=== PATIENT | female | born 1965 | race Caucasian/White ===

== ENCOUNTER → 2016-11-28 | Outpatient (CLI) | payer BC ==
--- NOTE | 2016-11-29 10:04 | MM ---
Reason for exam: screening (asymptomatic). Last mammogram was performed 2 years and 8 months ago. History: Patient had first child at age 32. Benign left mammotome panel of the left breast, October 11, 2009. Took hormonal contraceptives for 20 years. Physical Findings: A clinical breast exam by your physician is recommended on an annual basis and results should be correlated with mammographic findings. MG Screening Mammo w CAD Bilateral CC and MLO view(s) were taken. Prior study comparison: March 22, 2014, bilateral MG diagnostic mammo w CAD [facility]. January 16, 2012, CAD bilateral diagnostic mammogram. The breast tissue is extremely dense which could obscure a lesion on mammography. Previous ultrasound biopsy in the left breast. No significant changes when compared with prior studies. ASSESSMENT: Benign, BI-RAD 2 RECOMMENDATION: Routine screening mammogram of both breasts in 1 year.
== END | disposition home or self-care (01) ==
LOC: RADMAMWWP 13:21
PROVIDERS: ATTEND Obstetrics & Gynecology
DX: Z12.31 Encounter for screening mammogram for malignant neoplasm of breast (principal)

== ENCOUNTER → 2018-03-30 | Outpatient (CLI) | payer BC ==
--- NOTE | 2018-03-30 08:56 | CT ---
EXAMINATION TYPE: CT iac w con DATE OF EXAM: 03/30/2018 COMPARISON: None HISTORY: Patient complains of right side ear pressure. CT DLP: 150 mGycm Automated exposure control for dose reduction was used. CONTRAST: CT scan of the IACs is performed with IV Contrast, patient injected with 100 mL of Isovue 300. FINDINGS: The external auditory canals are patent bilaterally. Few of the most inferior right mastoid air cells demonstrate opacification. Left mastoid air cells are well aerated. No fluid is seen withi n the middle ear cavities. External auditory canals are patent however there is a punctate 1 mm densi ty within the right external auditory canal that could represent cerumen. The middle ear ossicles ar e symmetric and unremarkable. There is no evidence of suspicious surrounding soft tissue density to suggest cholesteatoma. The scutum is preserved bilaterally. The cochlea and the semicircular canals are symmetric and unremarkable. Vestibular aqueduct and internal carotid canal appear unremarkable. Temporomandibular joints are maintained bilaterally. The ostiomeatal complexes are patent. Nonobstructing 3 mm right Siomara cells incidentally noted. Osse ous septi are noted in the maxillary sinuses. 4 mm right maxillary mucosal retention cyst is seen mary beth ng the medial wall of the maxillary sinus. Remaining paranasal sinuses are well aerated. On the enhan ramírez images there is no evidence of cerebellar pontine angle mass. Left vertebral artery is dominant. No dehiscence of the carotid canal. IMPRESSION: 1. Partial opacification of the right mastoid air cells that should be clinically correlate with poin t tenderness to exclude mastoiditis. 2. Punctate 1 mm density within the right external auditory canal that may represent cerumen. 3. No evidence of cholesteatoma, middle ear cavity fluid, ossicular abnormality, or cerebellopontine angle mass. No abnormal enhancement.
== END | disposition home or self-care (01) ==
LOC: RADCTMAIN 08:11
PROVIDERS: ATTEND Otolaryngology
DX: H74.8X1 Other specified disorders of right middle ear and mastoid (principal); H61.891 Other specified disorders of right external ear
CPT/HCPCS: 70481; Q9967

== ENCOUNTER → 2018-12-14 | Outpatient (CLI) | payer BC ==
--- NOTE | 2018-12-15 08:57 | MM ---
Reason for exam: screening (asymptomatic). Last mammogram was performed 2 years and 1 month ago. History: Patient is postmenopausal and had first child at age 32. Benign left mammotome panel of the left breast, October 11, 2009. Took hormonal contraceptives for 20 years. Physical Findings: A clinical breast exam by your physician is recommended on an annual basis and results should be correlated with mammographic findings. MG Screening Mammo w CAD Bilateral CC and MLO view(s) were taken. Prior study comparison: November 28, 2016, bilateral MG screening mammo w CAD. March 22, 2014, bilateral MG diagnostic mammo w CAD [facility]. The breast tissue is heterogeneously dense. This may lower the sensitivity of mammography. Finding #1: There is a 7 mm equal density (isodense), obscured oval mass in the upper outer quadrant of the right breast. Finding #2: There are typically benign calcifications in both breasts. Previous mammotome biopsy in the right. ASSESSMENT: Incomplete: need additional imaging evaluation, BI-RAD 0 RECOMMENDATION: Special view mammogram of the right breast. If lesion persists on supplemental views, image directed ultrasound is recommended. [facility] will attempt to contact patient to return for supplemental views and ultrasound if indicated.
--- NOTE | 2018-12-15 14:16 | BD ---
EXAMINATION TYPE: Axial Bone Density DATE OF EXAM: 12/14/2018 COMPARISON: NONE CLINICAL HISTORY: Postmenopausal Height: 66 Weight: 148.5 FRAX RISK QUESTIONS: Alcohol (3 or more units per day): no Family History (Parent hip fracture): no Glucocorticoids (More than 3mos): no (Ex: prednisone, prednisolone, methylprednisolone, dexamethasone, and hydrocortisone). History of Fracture in Adulthood: no Secondary Osteoporosis: 1. Type 1 Diabetes: no 2. Hyperthyroidism: no 3. Menopause before 45: no 4. Malnutrition: no 5. Chronic liver disease: no Rheumatoid Arthritis: no Current Tobacco Use: no RISK FACTORS HISTORY OF: Family History of Osteoporosis: no Active: yes Diet low in dairy products/other sources of calcium: yes Postmenopausal woman: age 53 Lost more than 2 inches in height since high school: no MEDICATIONS: none Additional History: EXAM MEASUREMENTS: Bone mineral densitometry was performed using the [employer] System. Bone mineral density as measured about the Lumbar spine is: ----- L1-L4(G/cm2): 1.034 T Score Values are as follows: ----- L2: -1.8 ----- L3: -0.6 ----- L4: -1.3 ----- L1-L4: -1.2 Bone mineral density : baseline Bone mineral density about the R hip (g/cm2): 0.886 Bone mineral density about the L hip (g/cm2): 0.926 T Score values are as follows: -----R Neck: -1.1 -----L Neck: -0.8 -----R Total: -0.9 -----L Total: -0.7 Bone mineral density : baseline IMPRESSION: Osteopenia (T Score between -2.5 and -1). There is slightly increased risk of fracture and the patient may be considered for treatment. Re-Screen 2-5 years. NOTE: T-SCORE=SD OF THE YOUNG ADULT MEAN.
== END | disposition home or self-care (01) ==
LOC: RADMAMWWP 11:53
PROVIDERS: ATTEND Family Medicine
DX: Z12.31 Encounter for screening mammogram for malignant neoplasm of breast (principal); M85.88 Other specified disorders of bone density and structure, other site; Z78.0 Asymptomatic menopausal state
CPT/HCPCS: 77067; 77080

== ENCOUNTER → 2018-12-16 | Outpatient (CLI) | payer BC ==
--- NOTE | 2018-12-17 10:06 | MM ---
Reason for exam: additional evaluation requested from abnormal screening. Last mammogram was performed less than 1 month ago. History: Patient is postmenopausal and had first child at age 32. Benign left mammotome panel of the left breast, October 11, 2009. Took hormonal contraceptives for 20 years. Physical Findings: Nurse Summary: 1.5cm nodule in the right breast at 10 o'clock (nurse juan). MG 3D Work Up W/Cad RT Spot compression CC, spot compression MLO, and LM view(s) were taken of the right breast. Prior study comparison: December 14, 2018, bilateral MG screening mammo w CAD. November 28, 2016, bilateral MG screening mammo w CAD. The breast tissue is extremely dense which could obscure a lesion on mammography. Finding #1: There is a 7 mm spiculated mass in the upper outer quadrant of the right breast. Finding #2: There are typically benign calcifications in the right breast. These results were verbally communicated with the patient and result sheet given to the patient on 12/16/18. ASSESSMENT: Incomplete: need additional imaging evaluation, BI-RAD 0 RECOMMENDATION: Ultrasound of the right breast.
--- NOTE | 2018-12-17 10:08 | USB ---
Reason for exam: additional evaluation requested from abnormal screening. History: Patient is postmenopausal and had first child at age 32. Benign left mammotome panel of the left breast, October 11, 2009. Took hormonal contraceptives for 20 years. US Breast Workup Limited RT Right limited breast ultrasound including focal area of concern, retroareolar and axilla demonstrates a 0.5 x 0.3 x 0.5cm lesion too small to characterize at 10 o'clock, a 0.6 x 0.5 x 0.6cm hypoechoic lesion at 10 o'clock and a 0.5 x 0.3 x 0.7cm cystic lesion at 12 o'clock. These results were verbally communicated with the patient and result sheet given to the patient on 12/16/18. ASSESSMENT: Suspicious, BI-RAD 4 RECOMMENDATION: Stereotactic core biopsy of the right breast. Called Dr. Garces with mammographic findings and has scheduled an appointment for the patient for 12/24/18 at 12:[address] Trivedi. Biopsy scheduled for 12/29/18 at 8:00. PRELIMINARY REPORT CALLED AND FAXED TO DR. TRIVEDI ON 12/17/18.
== END | disposition home or self-care (01) ==
LOC: RADMAMWWP 13:39
PROVIDERS: ATTEND Family Medicine
DX: R92.8 Other abnormal and inconclusive findings on diagnostic imaging of breast (principal)
CPT/HCPCS: 77061; 77065

== ENCOUNTER → 2018-12-24 | Outpatient (CLI) | payer BC ==
[2018-12-24 12:16] VITALS: BP 118/76; PULSE 66; RESP 20; TEMP 98; BMI 23.3
--- NOTE | 2018-12-24 13:03 | P.GSHP ---
History of Present Illness H&P Date: 12/24/18 Chief Complaint: abnormal mammogram Zoey is a 53-year-old white female who had a bilateral mammogram and 4119. On this there was a 7 mm equal density lesion in the upper outer quadrant of the right breast. There are benign-looking calcifications in both breasts. She was recommended to undergo a diagnostic mammogram of the right side. The diagnostic mammogram was performed on 4319. This revealed a 7 mm spiculated mass in the upper quadrant of the right breast. An ultrasound was then performed. The ultrasound revealed a 0.5 cm area at 10:00 a 0.6 cm area at 10:00 and a 0.5 cm cystic lesion at 12:00 after review of the ultrasound the recommendation as per radiology was a stereotactic core biopsy of the right breast. The patient herself does not feel anything of concern in her breasts. The patient denies any nipple discharge or skin changes of concern in her breasts. She has no history of any trauma or recent infection in the breast. Family History: maternal grandfather: kidney cancer Hormonal History: menarche: 8 : 2, 2children, first at 32, brest fed: yes menopause: 48 BCP: 20 years hormones: none Past surgical history: 1. tonsils 2. Left breast biopsy 3. implants in two teeth Past medical history: Negative Social history: Smoked: Negative Alcohol: Occasional Drugs: Negative - Constitutional Constitutional: Reports sweats, Denies chills, Denies fever - EENT Eyes: denies blurred vision, denies pain Ears: deny: decreased hearing, tinnitus Ears, nose, mouth and throat: Denies headache, Denies sore throat - Breasts Breasts: bilateral: as per HPI - Cardiovascular Cardiovascular: Denies chest pain, Denies shortness of breath - Respiratory Respiratory: Denies cough, Denies 7 - Gastrointestinal Comment: colonoscopy done at 48 all good Gastrointestinal: Reports constipation, Denies abdominal pain, Denies diarrhea, Denies nausea, Denies vomiting - Genitourinary (Female) Genitourinary: Denies dysuria, Denies hematuria - Menstruation Menstruation: Reports postmenopausal - Musculoskeletal Comment: diffuse joint pain - Integumentary Integumentary: Denies pruritus, Denies rash - Neurological Neurological: Denies numbness, Denies weakness - Psychiatric Psychiatric: Denies anxiety, Denies depression - Endocrine Endocrine: Denies fatigue, Denies weight change - Hematologic/Lymphatic Comment: none - Allergic/Immunologic Comment: sulfa Past Medical History Past Medical History: No Reported History History of Any Multi-Drug Resistant Organisms: None Reported Past Surgical History: Tonsillectomy Additional Past Surgical History / Comment(s): LEFT BREAST BIOSPY APPROX 2008 Smoking Status: Never smoker - Past Family History Sister(s) Family Medical History: Diabetes Mellitus Additional Family Medical History / Comment(s): PAIN MANAGEMENT Brother(s) Family Medical History: Hyperlipidemia Father Family Medical History: Hypertension Medications and Allergies Home Medications Medication Instructions Recorded Confirmed Type Calcium Carbonate [Calcium] 600 mg PO DAILY 12/21/18 12/24/18 History Cholecalciferol (Vitamin D3) 2,000 unit PO DAILY 12/21/18 12/24/18 History [Vitamin D3] Glucosamine Sulfate 1,000 mg PO DAILY 12/21/18 12/24/18 History Vitamin B Complex 1 each PO DAILY 12/21/18 12/24/18 History Ibuprofen/Diphenhydramine Cit 2 each PO HS 12/24/18 12/24/18 History [Motrin Pm Caplet] Allergies Allergy/AdvReac Type Severity Reaction Status Date / Time Sulfa (Sulfonamide Allergy Rash/Hives Verified 12/24/18 12:10 Antibiotics) Surgical - Exam Vital Signs Temp Pulse Resp BP Pulse Ox 98.0 F 66 20 118/76 99 12/24/18 12:11 12/24/18 12:11 12/24/18 12:11 12/24/18 12:11 12/24/18 12:11 BMI 23.4 - General well developed, well nourished, no distress - Eyes normal ocular movement, no icteric - ENT no hearing loss, no congestion - Neck trachea midline - Respiratory normal respiratory effort, clear to auscultation - Cardiovascular Rhythm: regular Heart Sounds: normal: S1, S2 - Abdomen Abdomen: soft, non tender, no guarding, no rigid, no rebound - Integumentary no rash, no abnormal pigmentation - Neurologic no disoriented, no combative - Musculoskeletal normal gait, normal posture - Psychiatric oriented to time, oriented to person, oriented to place, speech is normal, memory intact breast exam: right Breasts: Multiple positional exam fibrocystic changes, dense breast, no dominant mass or nodule is of concern Right axilla: No adenopathy of concern Left breast: Multiple positional exam no dominant masses or nodules of concern, fibrocystic changes Left axilla: No adenopathy of concern bra size: 36C Ptosis mild Results abnromal mammogram of the right breast Assessment and Plan Assessment: Impression: 1. Abnormal mammogram right breast 2. Fibrocystic breast changes 3. Family history of cancer Plan: 1. The breast stereotactic core biopsy 2. Follow-up approximately one week after biopsy CC: Dr. Randall Garces
== END ==
LOC: WWCWWP 11:55
PROVIDERS: ATTEND Surgery
DX: Z53.9 Procedure and treatment not carried out, unspecified reason (principal)

== ENCOUNTER → 2018-12-29 | Day surgery (SDC) | payer BC ==
[2018-12-29 07:26] VITALS: RESP 16; TEMP 98; BMI 51.5
--- NOTE | 2018-12-29 08:37 | P.PCN ---
Date of Procedure: 12/29/18 Preoperative Diagnosis: Mammographic abnormality right breast Postoperative Diagnosis: same Procedure(s) Performed: Right breast stereotactic core needle biopsy Anesthesia: local Surgeon: Tatyana Trivedi Estimated Blood Loss (ml): 0.1 Pathology: other (breast tissue) Condition: stable Disposition: same day Indications for Procedure: Spiculated nodular density right breast Operative Findings: same Description of Procedure: Zoey is a 53-year-old white female who presents with mammographic abnormality of a 0.7 cm spiculated nodule in the right breast at the 10 o'clock position. The lesion was not seen on ultrasound as well as does necessary for biopsy and she was recommended to undergo a stereotactic core biopsy of the right breast. Risk and benefits of the procedure were discussed with the patient and she wishe d to proceed. The patient was taken to the stereotactic core wound. She was positioned on the stereotactic lo-rad table such that a lateral to medial approach was utilized. The lesion was in the 10 o'clock position of the right breast. The lesion was identified on the tube coremaker x-ray. Following this a stereo pair was obtained. The lesion was identified. The lesion was targeted. The breast was prepped utilizing Betadine. Approximately 20 mL of 1% lidocaine was used to anesthetize the area of concern. The needle was driven to the correct targets. 12 core biopsies were obtained. A 9-gauge vacuum assisted rotating needle was utilized. A radiograph of the specimen was not obtained secondary to the fact that there were no microcalcifications. A secure luis marker was placed. The specimen was sent to pathology. The patient will follow with Dr. Garces in approximately 2 weeks.
[2018-12-29 09:07] VITALS: BP 114/74; PULSE 60
--- NOTE | 2018-12-30 17:26 | MM ---
EXAMINATION TYPE: MG stereo VAD BX RT DATE OF EXAM: 12/29/2018 COMPARISON: 12/16/2018 CLINICAL HISTORY: Abnormal mammogram TECHNIQUE: Stereotactic guided core biopsy of right breast. FINDINGS: The procedure was performed by surgery. The targeting was provided by the surgeon. Postprocedure mammogram was obtained. Stereotactic core marker is at the location of the prior nodular distortion IMPRESSION: 1. Successful stereotactic core biopsy right breast. Recommendations: 1. Recommendations are pending pathology results. Pathology Results: Malignant RIGHT BREAST, NEEDLE CORE BIOPSIES: Well differentiated adenocarcinoma (Grade I) involving multiple core biopsies. An appropriately controlled immunohistochemical study for Calponin documents invasive carcinoma. See Surgical Pathology Cancer Case Summary. ADDENDUM REPORT A. RIGHT BREAST NEEDLE CORE BIOPSIES: Well differentiated adenocarcinoma (Grade 1). Recommendation Surgical consult of the right breast. DAYANARA
== END ==
LOC: RADMAMWWP 07:06
PROVIDERS: ATTEND Surgery
DX: C50.411 Malignant neoplasm of upper-outer quadrant of right female breast (principal); Z17.0 Estrogen receptor positive status [ER+]; Z88.2 Allergy status to sulfonamides
CPT/HCPCS: 88305; 88342; 88341; 19081; A4648; J2001

== ENCOUNTER → 2019-01-06 | Outpatient (CLI) | payer BC ==
[2019-01-06 14:19] VITALS: BP 120/79; PULSE 69; RESP 20; TEMP 97.8; BMI 23.3
--- NOTE | 2019-01-06 15:19 | P.PN ---
Subjective Progress Note Date: 01/06/19 Principal diagnosis: Right breast stage IA invasive ductal cancer Zoey is a 53-year-old white female who is status post right breast stereotactic core biopsy. Pathology revealed a [id number]+[id number]-Grade1 invasive ductal carcinoma of the right breast. She has a stage IA lesion. The patient has done well status post her stereotactic core biopsy procedure, without complaints related to the procedure. We have talked about the pathology of the lesion. Have talked with she and her about the treatment options. They've been given the option of a lumpectomy plus radiation therapy, mastectomy plus or minus reconstruction, and sentinel node biopsy plus or minus axillary node dissection. She has opted for a lumpectomy plus radiation therapy. She will have a sentinel node biopsy possible axillary node dissection. I discussed the risks and benefits and they wish to proceed in the near future. Objective - Vital Signs Vital signs: Vital Signs Temp 97.8 F 01/06/19 14:17 Pulse 69 01/06/19 14:17 Resp 20 01/06/19 14:17 BP 120/79 01/06/19 14:17 Pulse Ox 99 01/06/19 14:17 Intake & Output 01/05/19 01/06/19 01/06/19 18:59 06:59 18:59 Weight 65.771 kg - Constitutional General appearance: Present: average body habitus - EENT Eyes: Present: EOMI ENT: Present: hearing grossly normal - Neck Neck: Present: normal ROM - Respiratory Respiratory: bilateral: CTA - Cardiovascular Rhythm: regular - Integumentary Integumentary Comment(s): Right breast biopsy site clean and dry, mild ecchymosis No evidence of any infection Bra size 36C Assessment and Plan Assessment: Impression: 1. Right breast stage IA invasive ductal carcinoma The risks and benefits of operative procedure been discussed with the patient and her . Options including lumpectomy plus radiation therapy versus mastectomy plus or minus reconstruction have been discussed. We've also discussed sentinel node biopsy possible axillary node dissection. The patient wishes to proceed with a lumpectomy and radiation therapy. She is going at this time to meet with the radiation oncologist. We've also discussed the need for possible medical oncology intervention, hormonal therapy and an Oncotype procedure being done on the tumor. She will meet with a medical oncologist post-surgical intervention. We've also discussed genetic testing and the patient has declined. The patient wishes to be scheduled in the near future. Plan: 1. Appointment with radiation oncology 2. Presentation of case at tumor board 3. Right breast needle localization and lumpectomy, sentinel node biopsy after injection, possible axillary node dissection The patient understands the risks and benefits and wishes to proceed. CC: Dr. Randall Garces
== END | disposition home or self-care (01) ==
LOC: WWCWWP 13:58
PROVIDERS: ATTEND Surgery
DX: Z53.9 Procedure and treatment not carried out, unspecified reason (principal)

== ENCOUNTER → 2019-01-28 | Outpatient (CLI) | payer BC ==
[2019-01-28 08:30] VITALS: BP 120/81; PULSE 76; RESP 18; TEMP 97.8; BMI 23.3
--- NOTE | 2019-01-28 08:58 | P.GSHP ---
History of Present Illness H&P Date: 01/28/19 Chief Complaint: right breast stage IA breast cancer Zoey is a 53-year-old white female who had a bilateral mammogram on 4118. She was noted to have a 7 mm equal density lesion in the upper outer quadrant of the right breast. She subsequently underwent a stereotactic core biopsy of the right breast which was positive for invasive ductal carcinoma. The results were discussed with the patient and her . Surgical options were discussed. The patient wished for a lumpectomy, sentinel node biopsy possible axillary node dissection. Her case was discussed at tumor board and this was agreed upon also. The patient had been found on a routine mammogram. The patient had not felt any masses or nodules of concern. She denied any nipple discharge or skin changes. She has no complaints related to the recent biopsy. Family history: Maternal grandfather: Kidney cancer Hormonal history: Menarche: 8 Pregnancies: 2, 2 children, first at 32, press-fit: Yes Menopause: 48 Procedure post colon 20 years Hormones: Negative Past surgical history: 1. Tonsils 2. Left breast biopsy 3. Implantation to teeth Past medical history: Negative Social history: Smoke: Negative alcohol: Occasional Drugs: Negative - Constitutional Constitutional: Reports sweats - EENT Eyes: denies blurred vision, denies pain Ears: deny: decreased hearing, tinnitus Ears, nose, mouth and throat: Denies headache, Denies sore throat - Breasts Breasts: bilateral: as per HPI - Cardiovascular Cardiovascular: Denies chest pain, Denies shortness of breath - Respiratory Respiratory: Denies cough, Denies 7 - Gastrointestinal Comment: colonoscopy done at 48 Gastrointestinal: Reports constipation, Denies abdominal pain, Denies diarrhea, Denies nausea, Denies vomiting - Genitourinary (Female) Genitourinary: Denies dysuria, Denies hematuria - Menstruation Menstruation: Reports postmenopausal - Musculoskeletal Comment: diffuse joint pain - Integumentary Integumentary: Denies pruritus, Denies rash - Neurological Neurological: Denies numbness, Denies weakness - Psychiatric Psychiatric: Denies anxiety, Denies depression - Endocrine Endocrine: Denies fatigue, Denies weight change - Hematologic/Lymphatic Comment: none - Allergic/Immunologic Comment: sulfa Past Medical History Past Medical History: No Reported History History of Any Multi-Drug Resistant Organisms: None Reported Past Surgical History: Orthopedic Surgery, Tonsillectomy Additional Past Surgical History / Comment(s): LEFT BREAST BIOSPY APPROX 2008. right knee scope 2011 Past Anesthesia/Blood Transfusion Reactions: No Reported Reaction Past Psychological History: Anxiety Additional Psychological History / Comment(s): Hx of Anxiety 10 years ago, not a current issue Smoking Status: Never smoker Past Alcohol Use History: Occasional Past Drug Use History: None Reported - Past Family History Sister(s) Family Medical History: Diabetes Mellitus Additional Family Medical History / Comment(s): PAIN MANAGEMENT Brother(s) Family Medical History: Hyperlipidemia Father Family Medical History: Hypertension Medications and Allergies Home Medications Medication Instructions Recorded Confirmed Type Calcium Carbonate [Calcium] 600 mg PO DAILY 12/21/18 01/28/19 History Cholecalciferol (Vitamin D3) 2,000 unit PO DAILY 12/21/18 01/28/19 History [Vitamin D3] Glucosamine Sulfate 1,000 mg PO DAILY 12/21/18 01/28/19 History Vitamin B Complex 1 each PO DAILY 12/21/18 01/28/19 History Ibuprofen/Diphenhydramine Cit 2 each PO HS 12/24/18 01/28/19 History [Motrin Pm Caplet] Allergies Allergy/AdvReac Type Severity Reaction Status Date / Time Sulfa (Sulfonamide Allergy Rash/Hives Verified 01/28/19 08:25 Antibiotics) Surgical - Exam Vital Signs Temp Pulse Resp BP Pulse Ox 97.8 F 76 18 120/81 98 01/28/19 08:25 01/28/19 08:25 01/28/19 08:25 01/28/19 08:25 01/28/19 08:25 BMI 23.4 - General well developed, well nourished, no distress - Eyes normal ocular movement, no icteric - ENT no hearing loss, no congestion - Neck no masses, trachea midline - Respiratory normal expansion, normal respiratory effort, clear to auscultation - Cardiovascular Rhythm: regular Heart Sounds: normal: S1, S2 - Abdomen Abdomen: soft, non tender, no guarding, no rigid, no rebound - Integumentary no rash, no abnormal pigmentation - Neurologic no disoriented, no combative - Musculoskeletal normal gait, normal posture - Psychiatric oriented to time, oriented to person, oriented to place, speech is normal, memory intact Breast examination: Right breast: Multi-positional exam fibrocystic changes, dense breast, no dominant masses or nodules of concern Right axilla: No adenopathy of concern Left breast: Multi-positional exam no dominant masses or nodules of concern, fibrocystic changes Left breast: No adenopathy of concern Breast size: 30 6C Ptosis: Mild Results Abnormal mammogram of the right breast Pathology slides reviewed Assessment and Plan Assessment: Impression: 1. Right breast stage IA invasive ductal breast cancer 2. Fibrocystic breast changes 3. Family history of cancer Plan: 1. Right breast needle localization lumpectomy, sentinel node injection, sentinel node biopsy, possible axillary node dissection Risks and benefits of the procedure were discussed with the patient. She understands. She is was given the option of mastectomy versus lumpectomy plus radiation and wishes for lumpectomy. She understands the risks and benefits of sentinel node biopsy possible axillary node dissection. Her case was presented at tumor board further was concurrence with the above treatment. The patient is scheduled for the procedure in the near future. Cc: Dr. Randall Garces
== END | disposition home or self-care (01) ==
LOC: WWCWWP 08:05
PROVIDERS: ATTEND Surgery
DX: Z53.9 Procedure and treatment not carried out, unspecified reason (principal)

== ENCOUNTER 2019-02-02 09:27 | Day surgery (SDC) | payer BC ==
[2019-01-29 14:27] VITALS: BMI 23.3
[~2019-02-02 09:27] MED LIST: DEXAMETHASONE SOD PHOSPHATE 10 MG/ML 1 ML VIAL IV ONE; HEPARIN SODIUM,PORCINE 5,000 UNIT/ML 1 ML VIAL SQ ONE; HYDROmorphone 0.5 MG/0.5 ML SYRINGE IVP PRN; LACTATED RINGERS 1,000 ML IV SCH; LIDOCAINE 1% 20 ML VIAL (10MG/ML) FOR IV START INTRADERMA PRN; MIDAZOLAM 2 MG/2 ML VIAL IV PRN; ONDANSETRON 4 MG/2 ML VIAL IVP ONE; Pre Op ABX Message 1 EACH MISC MISCELLANE ONE; SCOPOLAMINE 1.5MG/72HR PATCH TRANSDERM ONE
[2019-02-02] MEDS ORDERED: ALPRAZolam 0.5 MG TAB PO ONE (10:02)
[2019-02-02] MEDS ORDERED: LIDOCAINE 1% INJ 10MG/ML (20 ML MDV) SQ ONE (10:40)
[2019-02-02] MEDS ORDERED: HEPARIN SODIUM,PORCINE 5,000 UNIT/ML 1 ML VIAL SQ ONE (11:29)
--- NOTE | 2019-02-02 11:33 | NM ---
EXAMINATION TYPE: NM sentinel node injection DATE OF EXAM: 02/02/2019 COMPARISON: 12/29/2018 stereotactic core needle biopsy. HISTORY: Right breast cancer with request for nuclear medicine sentinel node injection. TECHNIQUE AND FINDINGS: The procedure of sentinel lymph node injection was explained to the patient. The benefits, alternatives, and risks were discussed. An informed consent was then obtained. Overlying skin is cleaned with sterile alcohol. Following this, 511 uCi Tc99m Tilmanocept was inject ed in the upper outer aspect of the right nipple intradermally. The patient tolerated the procedure well without any immediate complication. The patient was kept in the radiology department for short stay after the procedure and then taken to surgery for surgical p rocedure what is presumed intraoperative gamma probe will be used for sentinel lymph node detection. IMPRESSION: Right breast radiotracer injection for sentinel node localization as above.
[2019-02-02] MEDS ORDERED: KETOROLAC 30 MG/ML 1 ML VIAL ONE (12:20)
[2019-02-02] MEDS ORDERED: PHENYLEPHRINE-0.9% NACL SYG 1 MG/10 ML SYRINGE ONE (12:20)
[2019-02-02] MEDS ORDERED: fentaNYL (PF) 50 MCG/ML 2 ML AMP ONE (12:20)
[2019-02-02] MEDS ORDERED: SUCCINYLCHOLINE CHLORIDE 100 MG/5 ML SYR IV ONE (12:20)
[2019-02-02] MEDS ORDERED: PROPOFOL 10 MG/ML 20 ML VIAL IV ONE (12:20)
[2019-02-02] MEDS ORDERED: MIDAZOLAM 2 MG/2 ML VIAL ONE (12:20)
[2019-02-02] MEDS ORDERED: LIDOCAINE 1% INJ 10MG/ML (20 ML MDV) ONE (12:20)
--- NOTE | 2019-02-02 14:24 | USB ---
EXAMINATION TYPE: US breast localization RT, MG diagnostic mammo RT wo CAD, MG surgical specimen RT DATE OF EXAM: 02/02/2019 COMPARISON: Stereotactic guided biopsy and right breast ultrasound dated 12/29/2018 and 12/16/2018 respectively. CLINICAL HISTORY: R92.8 ABNORMAL MAMMOGRAM. Right breast cancer, biopsy-proven, for which needle localization was requested. TECHNIQUE: Sonographic guided needle localization with wire placement and surgical excision of area of concern in the right breast. FINDINGS: The procedure of needle localization with wire placement and than surgical excision was explained to the patient. Benefits, alternatives, and risks were discussed. An informed consent was then obtained. Preprocedural timeout was performed. Preprocedural targeted right breast ultrasound at the 10:00 position demonstrates the suspicious sonographic masses seen on the exam of 12/16/2018 2 correlate with the biopsied mass on stereotactic technique. The overlying skin was prepped and draped in usual sterile fashion. 8 cc of 1% lidocaine was used as anesthetic into the skin and subcutaneous tissue up to the level of area of concern. A 5 cm needle was used. It was placed under sonographic guidance through the mass. At this point, wire was placed and the needle was withdrawn. The wire was fixed to patient's skin. Subsequent CC and LM mammogram show the needle to be in satisfactory position relative to the targeted area. Images were marked for surgeon. The patient tolerated the procedure well without any immediate complication. The patient was kept in the radiology department for short stay after the procedure and then taken to surgery for surgical excision. Targeted mass, biopsy marker and wire are identified in specimen mammogram. The patient was kept in hospital for short stay after the procedure and then discharged home in stable condition. IMPRESSION: Successful, uncomplicated needle localization with wire placement and surgical excision of biopsy-proven right breast carcinoma breast, full pathology results to follow. Pathology Results: Malignant A. SENTINEL LYMPH NODE #1, RIGHT BREAST, BIOPSY: Lymph node with extensive fat replacement, negative for metastasis. CK7 and KOFI immunoperoxidase stains are confirmatory (controls appropriate). B. DE-EPITHELIALIZED SKIN, RIGHT BREAST, EXCISION: Benign skin with dermal scar. C. RIGHT BREAST, LUMPECTOMY: Invasive well differentiated ductal carcinoma and low grade ductal carcinoma in situ (DCIS), margins negative. See Surgical Pathology Cancer Case Summary. Recommendation Surgical consult of the right breast. Continued surgical management. [facility]
--- NOTE | 2019-02-02 15:09 | P.PCN ---
Date of Procedure: 02/02/19 Preoperative Diagnosis: Right breast cancer Postoperative Diagnosis: Same Procedure(s) Performed: Right breast lumpectomy, oncoplastic tissue rearrangement sentinel node biopsy Anesthesia: CORI Surgeon: Tatyana Trivedi Estimated Blood Loss (ml): 5 IV fluids (ml): 600 Pathology: other (Harned lymph node, breast tissue) Condition: stable Disposition: same day Indications for Procedure: Biopsy-proven right breast cancer Operative Findings: Dense breast tissue Description of Procedure: The patient initially went to the radiology department where localization. Concern was performed. Additionally radioactive tracer was injected along the periareolar complex. The patient was brought to the operating room and following induction of general anesthesia the right breast and axilla were prepped and draped in a sterile fashion. The axilla was approached initially. Using the neoprobe in the area of increased radioactivity was identified. A small incision was made over this area and dissected down to a radioactive lymph node. The lymph node was removed. This was done using sharp dissection as well as the Harmonic scalpel. The count on the radioactive lymph node at 10 seconds was 2286. There did not appear to be suspicious and frozen section was obtained. There were no suspicious lymph nodes to palpation on the dissection. The deep tissues were closed with 3-0 Vicryl suture. The skin was closed with a 4-0 Monocryl. The area of the breast was approached. After discussion with the patient was taken to the dissection. A periareolar incision. A 1 cm in diameter concentric [place] was measured and drawn. The skin was de-epithelialized. The outer circumference of the surgical the breast tissue was encountered in the upper outer quadrant area. Dissection in the plane between the breast and the skin was performed to the area of the tumor lesion. The cyst was identified and this tissue was grasped. The area of the tumor was eyes. Radiograph of the specimen revealed the area of concern had been removed. Following this the anterior tissue plane was dissected from both the superior and inferior breast pillars. The breast was dissected off of the fascia of the pectoralis major from both the superior and inferior periareolar space. At this point the breast could be easily mobilized to fill the defect. Posteriorly dissection had been carried down to the pectoralis muscle. The area was marked with titanium clips. The pillars were brought together and sutured together with 3-0 Vicryl suture. This was well irrigated and evaluated for hemostasis. After assured that hemostasis was attained the deep tissues were closed in the fashion spoken of. Approximately 30 cubic cm of tissue was mobilized facilitate the closure. After this had been accomplished the circumareolar incision was closed using a 5-0 [place] pursestring. This was followed by a 4-0 Monocryl subcuticular closure. All instrument and sponge counts were correct at the end of the case. Steri- Strips were applied. The patient tolerated the procedure in stable condition.
--- NOTE | 2019-02-02 15:12 | P.DS ---
Providers Attending physician: Tatyana Trivedi Primary care physician: Randall Garces Plan - Discharge Summary Discharge Rx Participant: Yes New Discharge Prescriptions: No Action Glucosamine Sulfate 1,000 mg PO DAILY Vitamin B Complex 1 each PO DAILY Cholecalciferol (Vitamin D3) [Vitamin D3] 2,000 unit PO DAILY Calcium Carbonate [Calcium] 600 mg PO DAILY Acetaminophen/Diphenhydramine [Tylenol PM 500-25mg] 1 tab PO HS Discharge Medication List Calcium Carbonate [Calcium] 600 mg PO DAILY 12/21/18 [History] Cholecalciferol (Vitamin D3) [Vitamin D3] 2,000 unit PO DAILY 12/21/18 [History] Glucosamine Sulfate 1,000 mg PO DAILY 12/21/18 [History] Vitamin B Complex 1 each PO DAILY 12/21/18 [History] Acetaminophen/Diphenhydramine [Tylenol PM 500-25mg] 1 tab PO HS 01/29/19 [History] Follow up Appointment(s)/Referral(s): Tatyana Trivedi MD [STAFF PHYSICIAN] - 3 Days Activity/Diet/Wound Care/Special Instructions: Do not drive today Do not drive if taking opioid pain medication Patient to wear bra at all times Discharge Disposition: HOME SELF-CARE
[2019-02-02 15:20] VITALS: TEMP 97
[2019-02-02 15:32] VITALS: RESP 16
[2019-02-02 16:19] VITALS: BP 140/73; PULSE 59
== END 2019-02-02 17:09 | disposition home or self-care (01) ==
LOC: OR 09:27
PROVIDERS: ATTEND Surgery
DX: D05.11 Intraductal carcinoma in situ of right breast (principal); Z88.2 Allergy status to sulfonamides; Z97.2 Presence of dental prosthetic device (complete) (partial); Z98.890 Other specified postprocedural states; Z79.899 Other long term (current) drug therapy; Z82.49 Family history of ischemic heart disease and other diseases of the circulatory system; Z83.3 Family history of diabetes mellitus
CPT/HCPCS: 19301; 38500; 88305; 88342; 88307; 88341; 77065; 76098; 19285; 38792; A9520; J2250; J1644; J1100; J2405; J2001; J3010; J1885; J2370; J0330; J2704

== ENCOUNTER → 2019-02-05 | Outpatient (CLI) | payer BC ==
--- NOTE | 2019-02-05 10:39 | P.PN ---
Progress Note - Text Progress Note Date: 02/05/19 Zoey is a 54-year-old white female status post right breast lumpectomy and sentinel node biopsy performed on 520 [id number]. Pathology postoperative reveals that her margins are negative, and that her sentinel node is negative. The patient has no complaints related to the surgery. She comes for postoperative evaluation. Physical exam: Lungs: Clear Heart: Regular rate and rhythm Breasts: Incisions clean and dry Mild ecchymosis lateral aspect of right breast Impression: 1. Patient doing well postoperative breast lumpectomy and sentinel node biopsy Plan: 1. Follow-up appointment with medical oncology 2. Appointment with radiation oncology 3. Follow-up care in 3-4 weeks after appointments with above Cc: Dr. Randall Garces
[2019-02-05 10:43] VITALS: BP 131/81; PULSE 78; RESP 16; TEMP 97.9; BMI 23.3
== END | disposition home or self-care (01) ==
LOC: WWCWWP 10:19
PROVIDERS: ATTEND Surgery
DX: Z53.9 Procedure and treatment not carried out, unspecified reason (principal)

== ENCOUNTER → 2019-03-12 | Outpatient (CLI) | payer BC ==
[2019-03-12 10:47] VITALS: BP 120/77; PULSE 69; RESP 16; TEMP 97.8; BMI 24.4
--- NOTE | 2019-03-12 11:05 | P.PN ---
Subjective Patient is status post right breast lumpectomy and SNB, 02-02-19. This was for a Stage 1A cancer. The patient is presently receiving radiation therapy to the right breast. Her radiation will be done March 31. She will be started on hormonal therapy after the radiation therapy. She has no complaints at this time. The patient does complain of some mild erythema near her right eye. This does not seem to be related to her breast. The patient has no complaints of soreness in her breast or problems related to the healing process of her right breast. Objective - Vital Signs Vital signs: Vital Signs Temp 97.8 F 03/12/19 10:42 Pulse 69 03/12/19 10:42 Resp 16 03/12/19 10:42 BP 120/77 03/12/19 10:42 Pulse Ox 98 03/12/19 10:42 Intake & Output 03/11/19 03/12/19 03/12/19 18:59 06:59 18:59 Weight 66.678 kg - Constitutional General appearance: Present: average body habitus - EENT Eyes: Present: EOMI ENT: Present: hearing grossly normal - Neck Neck: Present: normal ROM - Respiratory Respiratory: bilateral: CTA - Cardiovascular Rhythm: regular Heart sounds: normal: S1, S2 - Gastrointestinal General gastrointestinal: Present: soft - Integumentary Integumentary: Present: normal turgor - Musculoskeletal Musculoskeletal: Present: gait normal - Psychiatric Psychiatric: Present: A&O x's 3, appropriate affect, intact judgment & insight - Additional findings Additional findings: Breast examination: Right breast: Well-healed scars from prior lumpectomy, no evidence of any infection, multiple positional exam no evidence of any recurrence, the patient is getting return of sensation to the nipple areolar complex Right axilla: No adenopathy of concern well-healed scar Left breast: Multiple positional exam no dominant masses or nodules of concern Left axilla: No adenopathy of concern some mild shotty adenopathy Assessment and Plan Assessment: Impression: 1. Patient status post right breast lumpectomy stage I a breast cancer 2. Patient presently receiving radiation therapy 3. Patient to start hormonal therapy after completion of radiation therapy Plan: 1. Continue radiation therapy 2. Hormonal therapy following radiation therapy 3. Follow-up care in 3 month's time with a right breast mammogram Cc: Dr. Randall Garces
== END ==
LOC: WWCWWP 10:20
PROVIDERS: ATTEND Surgery
DX: Z53.9 Procedure and treatment not carried out, unspecified reason (principal)

== ENCOUNTER → 2019-06-14 | Outpatient (CLI) | payer BC ==
--- NOTE | 2019-06-14 10:52 | MM ---
Reason for exam: follow-up at short interval from prior study. Last mammogram was performed 4 months ago. History: Patient is postmenopausal, has history of breast cancer at age 53, and had first child at age 32. Malignant US breast localization RT of the right breast, February 02, 2019. Lumpectomy of the right breast, February 02, 2019. Malignant MG stereo VAD BX RT of the right breast, December 29, 2018. Benign left mammotome panel of the left breast, October 11, 2009. Took hormonal contraceptives for 20 years. Taking other hormone beginning at age 54. Physical Findings: Nurse did not find any significant physical abnormalities on exam. MG 3D Diag Mammo W/Cad RT CC, MLO, and XCCM view(s) were taken of the right breast. Prior study comparison: February 02, 2019, right breast MG diagnostic mammo RT wo CAD. December 16, 2018, right breast MG 3d work up w/cad RT. The breast tissue is heterogeneously dense. This may lower the sensitivity of mammography. Post therapy change on the right. These results were verbally communicated with the patient and result sheet given to the patient on 06/14/19. ASSESSMENT: Incomplete: need additional imaging evaluation, BI-RAD 0 RECOMMENDATION: Ultrasound of the right breast. (upper outer quadrant and medial at pain)
--- NOTE | 2019-06-14 10:55 | USB ---
Reason for exam: additional evaluation requested from abnormal screening. History: Patient is postmenopausal, has history of breast cancer at age 53, and had first child at age 32. Malignant US breast localization RT of the right breast, February 02, 2019. Lumpectomy of the right breast, February 02, 2019. Malignant MG stereo VAD BX RT of the right breast, December 29, 2018. Benign left mammotome panel of the left breast, October 11, 2009. Took hormonal contraceptives for 20 years. Taking other hormone beginning at age 54. US Breast Limited RT Right limited breast ultrasound including focal area of concern, retroareolar and axilla demonstrates a 0.5 x 0.3 x 0.4cm cystic lesion at 12 o'clock, a 0.4 x 0.3 x 0.4cm cystic lesion at 3 o'clock, a 0.3 x 0.3 x 0.4cm lesion too small to characterize at 10 o'clock, hypoechoic, follow up, and a 0.5 x 0.5cm lesion at axillary tail. Scanned 9-6 o'clock. No additional abnormality seen at the medial aspect. These results were verbally communicated with the patient and result sheet given to the patient on 06/14/19. ASSESSMENT: Probably benign, BI-RAD 3 RECOMMENDATION: Follow-up diagnostic mammogram of both breasts in 6 months. Ultrasound of the right breast in 6 months. (10 o'clock)
== END | disposition home or self-care (01) ==
LOC: RADMAMWWP 08:25
PROVIDERS: ATTEND Surgery
DX: R92.8 Other abnormal and inconclusive findings on diagnostic imaging of breast (principal)
CPT/HCPCS: 77061; 77065

== ENCOUNTER → 2019-06-17 | Outpatient (CLI) | payer BC ==
[2019-06-17 15:04] VITALS: BP 126/78; PULSE 56; RESP 16; TEMP 97.7; BMI 23.3
--- NOTE | 2019-06-17 15:42 | P.PN ---
Subjective Progress Note Date: 06/17/19 Zoey is a 54 year old white female status post a right breast lumpectomy and SNB on 02-02-19. This was for a stage 1A breast cancaer. The patient had a right breast mammogram and ultrasound performed on . The mammogram was felt to be incomplete and an ultrasound was recommended. The ultrasound was felt to be probable benign BIRADS 3 the patient had several cystic lesions identified and repeat bilateral mammogram in 6 months was recommended with an ultrasound of the right breast as well with particular attention to the 10 o'clock position. The patient is on anastrozole. The patient finished her radiation therapy the end of April. She continues to feel warmth in the right breast and tenderness near the area of the lumpectomy. The patient states it hurts with pressure, and bouncing with horse back riding. No nipple discharge or changes. Family history: Maternal grandfather: Kidney cancer Hormonal history: Menarche: 8 Pregnancies: 2, 2 children, first at 32, press-fit: Yes Menopause: 48 Procedure post colon 20 years Hormones: Negative Past surgical history: 1. Tonsils 2. Left breast biopsy 3. Implantation to teeth Past medical history: Negative Social history: Smoke: Negative alcohol: Occasional Drugs: Negative - Constitutional Constitutional: Reports sweats - EENT Eyes: denies blurred vision, denies pain Ears: deny: decreased hearing, tinnitus Ears, nose, mouth and throat: Denies headache, Denies sore throat - Breasts Breasts: bilateral: as per HPI - Cardiovascular Cardiovascular: Denies chest pain, Denies shortness of breath - Respiratory Respiratory: Denies cough, Denies 7 - Gastrointestinal Comment: colonoscopy done at 48 Gastrointestinal: Reports constipation, Denies abdominal pain, Denies diarrhea, Denies nausea, Denies vomiting - Genitourinary (Female) Genitourinary: Denies dysuria, Denies hematuria - Menstruation Menstruation: Reports postmenopausal - Musculoskeletal Comment: diffuse joint pain - Integumentary Integumentary: Denies pruritus, Denies rash - Neurological Neurological: Denies numbness, Denies weakness - Psychiatric Psychiatric: Denies anxiety, Denies depression - Endocrine Endocrine: Denies fatigue, Denies weight change - Hematologic/Lymphatic Comment: none - Allergic/Immunologic Comment: sulfa Past Medical History Past Medical History: No Reported History History of Any Multi-Drug Resistant Organisms: None Reported Past Surgical History: Orthopedic Surgery, Tonsillectomy Additional Past Surgical History / Comment(s): LEFT BREAST BIOSPY APPROX 2008. right knee scope 2011 Past Anesthesia/Blood Transfusion Reactions: No Reported Reaction Past Psychological History: Anxiety Additional Psychological History / Comment(s): Hx of Anxiety 10 years ago, not a current issue Smoking Status: Never smoker Past Alcohol Use History: Occasional Past Drug Use History: None Reported Objective - Vital Signs Vital signs: Vital Signs Temp 97.7 F 06/17/19 14:59 Pulse 56 L 06/17/19 14:59 Resp 16 06/17/19 14:59 BP 126/78 06/17/19 14:59 Pulse Ox 99 06/17/19 14:59 Intake & Output 06/16/19 06/17/19 06/17/19 18:59 06:59 18:59 Weight 65.771 kg - Exam BMI 23.4 - Constitutional General appearance: Present: average body habitus - EENT Eyes: Present: EOMI ENT: Present: hearing grossly normal - Neck Neck: Present: normal ROM - Respiratory Respiratory: bilateral: CTA - Cardiovascular Rhythm: regular Heart sounds: normal: S1, S2 - Integumentary Integumentary Comment(s): radiation changes in the right breast Integumentary: Present: normal turgor - Musculoskeletal Musculoskeletal: Present: gait normal - Psychiatric Psychiatric: Present: A&O x's 3, appropriate affect, intact judgment & insight - Additional findings Additional findings: breast exam: right breast: Patient has well-healed scar from prior donut mastopexy, there is some thickening of the skin related to radiation changes, fibrocystic changes, no evidence of any recurrent cancer Right axilla: No adenopathy of concern Left breast: Multi-positional exam no dominant masses or nodules of concern fibrocystic changes Left axilla: No adenopathy of concern The breasts are asymmetric related to her prior lumpectomy Assessment and Plan Assessment: Impression: 1. Right breast stage IA invasive ductal carcinoma no evidence of recurrent disease 2. Fibrocystic breast changes 3. Family history of cancer 4. Patient is presently on anastrozole 5. Radiation changes skin of right breast Plan: 1. Repeat physician exam in 3 months 2. Bilateral mammogram in December 2019 with repeat physician exam at that time 3. Patient to call sooner if any questions of concern Cc: Dr.Aaron Garces
== END | disposition home or self-care (01) ==
LOC: WWCWWP 14:35
PROVIDERS: ATTEND Surgery
DX: Z53.9 Procedure and treatment not carried out, unspecified reason (principal)

== ENCOUNTER → 2019-09-16 | Outpatient (CLI) | payer BC ==
[2019-09-16 13:19] VITALS: BP 119/73; PULSE 78; RESP 16; TEMP 98.4
--- NOTE | 2019-09-16 13:40 | P.PN ---
Subjective Progress Note Date: 09/16/19 Principal diagnosis: survellience stage 1A right breast cancer Zoey is a 54 year old white female status post a right breast lumpectomy and SNB on 02-02-19. This was for a stage 1A breast cancaer. The patient had a right breast mammogram and ultrasound performed on . The mammogram was felt to be incomplete and an ultrasound was recommended. The ultrasound was felt to be probable benign BIRADS 3 the patient had several cystic lesions identified and repeat bilateral mammogram in 6 months was recommended with an ultrasound of the right breast as well with particular attention to the 10 o'clock position. The patient is on anastrozole. The patient finished her radiation therapy the end of April. She continues to feel warmth in the right breast and tenderness near the area of the lumpectomy, this has improved. The patient states it does not hurt as much with pressure, or bouncing with horse back riding. No nipple discharge or changes. Family history: Maternal grandfather: Kidney cancer Hormonal history: Menarche: 8 Pregnancies: 2, 2 children, first at 32, press-fit: Yes Menopause: 48 Procedure post colon 20 years Hormones: Negative Past surgical history: 1. Tonsils 2. Left breast biopsy 3. Implantation to teeth Past medical history: Negative Social history: Smoke: Negative alcohol: Occasional Drugs: Negative - Constitutional Constitutional: Reports sweats - EENT Eyes: denies blurred vision, denies pain Ears: deny: decreased hearing, tinnitus Ears, nose, mouth and throat: Denies headache, Denies sore throat - Breasts Breasts: bilateral: as per HPI - Cardiovascular Cardiovascular: Denies chest pain, Denies shortness of breath - Respiratory Respiratory: Denies cough, Denies 7 - Gastrointestinal Comment: colonoscopy done at 48 Gastrointestinal: Reports constipation, Denies abdominal pain, Denies diarrhea, Denies nausea, Denies vomiting - Genitourinary (Female) Genitourinary: Denies dysuria, Denies hematuria - Menstruation Menstruation: Reports postmenopausal - Musculoskeletal Comment: diffuse joint pain - Integumentary Integumentary: Denies pruritus, Denies rash - Neurological Neurological: Denies numbness, Denies weakness - Psychiatric Psychiatric: Denies anxiety, Denies depression - Endocrine Endocrine: Denies fatigue, Denies weight change - Hematologic/Lymphatic Comment: none - Allergic/Immunologic Comment: sulfa Past Medical History Past Medical History: No Reported History History of Any Multi-Drug Resistant Organisms: None Reported Past Surgical History: Orthopedic Surgery, Tonsillectomy Additional Past Surgical History / Comment(s): LEFT BREAST BIOSPY APPROX 2008. right knee scope 2011 Past Anesthesia/Blood Transfusion Reactions: No Reported Reaction Past Psychological History: Anxiety Additional Psychological History / Comment(s): Hx of Anxiety 10 years ago, not a current issue Smoking Status: Never smoker Past Alcohol Use History: Occasional Past Drug Use History: None Reported Objective - Vital Signs Vital signs: Vital Signs Temp 98.4 F 09/16/19 13:15 Pulse 78 09/16/19 13:15 Resp 16 09/16/19 13:15 BP 119/73 09/16/19 13:15 Pulse Ox 99 09/16/19 13:15 Intake & Output 09/15/19 09/16/19 09/16/19 18:59 06:59 18:59 Weight 65.771 kg - Exam BMI 23.4 - Constitutional General appearance: Present: average body habitus, disheveled - EENT Eyes: Present: EOMI ENT: Present: hearing grossly normal - Neck Neck: Present: lymphadenopathy, normal ROM - Respiratory Respiratory: bilateral: CTA - Cardiovascular Rhythm: regular Heart sounds: normal: S1, S2 - Gastrointestinal General gastrointestinal: Present: normal bowel sounds, soft - Integumentary Integumentary: Present: normal turgor - Musculoskeletal Musculoskeletal: Present: gait normal - Psychiatric Psychiatric: Present: A&O x's 3, appropriate affect, intact judgment & insight - Allied health notes Allied Health Notes Comment(s): breast exam: right breast: Multiple positional exam no dominant masses or nodules of concern, well-healed scar from prior surgery, radiation changes and changes from surgery Right axilla: No adenopathy of concern Left breast: No dominant masses or nodules of concern a multi-positional exam Left axilla: No adenopathy of concern Assessment and Plan Assessment: Impression: 1. Patient status post right lumpectomy and sentinel node biopsy for stage I a right breast cancer 2. Patient doing well at this time no evidence of recurrent cancer 3. Decreased tenderness in the right breast from last visit 4. fibrocystic changes of breast 5. Patient on anastrozole 6. Patient's last mammogram in June and recommendation was for bilateral mammogram and right breast ultrasound in 6 months Plan: 1. Bilateral mammogram and right breast ultrasound in December with appointment to follow 2. Continue to follow with medical oncology 3. Call if any questions of concerns CC: Dr. Randall Garces encounter 20 minutes, greater than 50% of time in counseling and planning
== END ==
LOC: WWCWWP 12:42
PROVIDERS: ATTEND Surgery
DX: Z53.9 Procedure and treatment not carried out, unspecified reason (principal)

== ENCOUNTER → 2020-03-29 | Outpatient (CLI) | payer BC ==
--- NOTE | 2020-03-30 08:24 | MM ---
Reason for exam: additional evaluation requested from prior study. Last mammogram was performed 9 months ago. History: Patient is postmenopausal, has history of breast cancer at age 53, and had first child at age 32. Malignant US breast localization RT of the right breast, February 02, 2019. Lumpectomy of the right breast, February 02, 2019. Malignant MG stereo VAD BX RT of the right breast, December 29, 2018. Benign left mammotome panel of the left breast, October 11, 2009. Took hormonal contraceptives for 20 years. Taking other hormone for 1 year beginning at age 54. Physical Findings: Nurse Summary: 0.5 x 0.5cm nodule in the right breast at 10 o'clock, 1 x 1cm nodule in the right breast at 12 o'clock (nurse ts). MG 3D Diag Mammo W/Cad CARROLL Bilateral CC and MLO view(s) were taken. Prior study comparison: June 14, 2019, right breast MG 3d diag mammo w/cad RT. February 02, 2019, right breast MG diagnostic mammo RT wo CAD. The breast tissue is heterogeneously dense. This may lower the sensitivity of mammography. Stable benign calcifications. Post operative lumpectomy changes upper outer right breast. Palpable lymph node site of surgery. These results were verbally communicated with the patient and result sheet given to the patient on 03/29/20. ASSESSMENT: Incomplete: need additional imaging evaluation, BI-RAD 0 RECOMMENDATION: Ultrasound of the right breast. Manage patient on a clinical basis.
--- NOTE | 2020-03-30 08:26 | USB ---
Reason for exam: additional evaluation requested from abnormal screening. History: Patient is postmenopausal, has history of breast cancer at age 53, and had first child at age 32. Malignant US breast localization RT of the right breast, February 02, 2019. Lumpectomy of the right breast, February 02, 2019. Malignant MG stereo VAD BX RT of the right breast, December 29, 2018. Benign left mammotome panel of the left breast, October 11, 2009. Took hormonal contraceptives for 20 years. Taking other hormone for 1 year beginning at age 54. US Breast Limited RT Right limited breast ultrasound including focal area of concern, retroareolar and axilla demonstrates a 3 x 3 x 3mm oval, cystic lesion at 10 o'clock and a 6 x 2 x 5mm oval, cystic lesion at 12 o'clock scar. These results were verbally communicated with the patient and result sheet given to the patient on 03/29/20. ASSESSMENT: Probably benign, BI-RAD 3 RECOMMENDATION: Follow-up diagnostic mammogram of the right breast in 6 months. Manage patient on a clinical basis.
== END | disposition home or self-care (01) ==
LOC: RADMAMWWP 14:12
PROVIDERS: ATTEND Surgery
DX: R92.8 Other abnormal and inconclusive findings on diagnostic imaging of breast (principal); Z85.3 Personal history of malignant neoplasm of breast
CPT/HCPCS: 77062; 77066

== ENCOUNTER → 2020-11-14 | Outpatient (CLI) | payer BC ==
--- NOTE | 2020-11-14 11:06 | MM ---
Reason for exam: follow-up at short interval from prior study. Last mammogram was performed 8 months ago. History: Patient is postmenopausal, has history of breast cancer at age 53, and had first child at age 32. Malignant US breast localization RT of the right breast, February 02, 2019. Lumpectomy of the right breast, February 02, 2019. Malignant MG stereo VAD BX RT of the right breast, December 29, 2018. Benign left mammotome panel of the left breast, October 11, 2009. Took hormonal contraceptives for 20 years. Taking antineoplastic beginning at age 53. Physical Findings: Nurse did not find any significant physical abnormalities on exam. MG 3D Diag Mammo W/Cad RT CC and MLO view(s) were taken of the right breast. Prior study comparison: March 29, 2020, bilateral MG 3d diag mammo w/cad CARROLL. June 14, 2019, right breast MG 3d diag mammo w/cad RT. The breast tissue is heterogeneously dense. This may lower the sensitivity of mammography. Post surgical changes right upper outer quadrant. No significant new findings when compared with previous films. These results were verbally communicated with the patient and result sheet given to the patient on 11/14/20. ASSESSMENT: Benign, BI-RAD 2 RECOMMENDATION: Follow-up diagnostic mammogram of both breasts in 4 months. Back on schedule for March 2021.
== END ==
LOC: RADMAMWWP 09:35
PROVIDERS: ATTEND Surgery
DX: R92.2 Inconclusive mammogram (principal); Z85.3 Personal history of malignant neoplasm of breast; Z78.0 Asymptomatic menopausal state
CPT/HCPCS: 77061; 77065

== ENCOUNTER → 2020-11-23 | Outpatient (CLI) | payer BC ==
[2020-11-23 14:37] VITALS: BP 111/67; PULSE 65; RESP 18; TEMP 98.6
--- NOTE | 2020-11-23 15:13 | P.PN ---
Subjective Progress Note Date: 11/23/20 Principal diagnosis: stage IA right breast cancer Zoey is a 55 year old white female status post right breast lumpectomy and SNB on 02-02-19. She completed adjuvant radiation therapy in March 2019. She is on arimodex. She did not have any chemotherapy. She is not complaining of any new lumps masses or nodules in her breast. She is not complaining of any nipple discharge or skin changes. She does have asymmetry of the nipple areolar complex related to the prior lumpectomy of the right breast. Family history: Father: Prostate cancer Surgical history: Right breast lumpectomy and sentinel node biopsy Medical history: Negative Social history: Nicotine: Negative Alcohol: Occasional Drugs: Negative Review of systems: HEENT: Negative Lungs: Negative Heart: Negative GI: Negative : Negative Musculoskeletal: Negative Neurologic: Negative Psychiatric: Negative ALLERGIES: As per HPI Objective - Vital Signs Vital signs: Vital Signs Temp 98.6 F 11/23/20 14:33 Pulse 65 11/23/20 14:33 Resp 18 11/23/20 14:33 BP 111/67 11/23/20 14:33 Pulse Ox 99 11/23/20 14:33 Intake & Output 11/22/20 11/23/20 11/23/20 18:59 06:59 18:59 Weight 56.699 kg - Exam BMI 20.2 - Constitutional General appearance: Present: average body habitus - EENT Eyes: Present: EOMI ENT: Present: hearing grossly normal - Neck Neck: Present: normal ROM - Respiratory Respiratory: bilateral: CTA - Cardiovascular Rhythm: regular Heart sounds: normal: S1, S2 - Gastrointestinal General gastrointestinal: Present: soft - Integumentary Integumentary: Present: normal turgor - Musculoskeletal Musculoskeletal: Present: gait normal - Psychiatric Psychiatric: Present: A&O x's 3, appropriate affect, intact judgment & insight - Additional findings Additional findings: breast exam: BRA: 36B inspection: Ptosis right breast grade 1, left breast grade 2/3 Palpation: Right breast: Multi-positional exam fibrocystic changes, no dominant masses or nodules of concern Right axilla: No adenopathy of concern Left breast: Multiple positional exam fibrocystic changes no dominant masses or nodules of concern Left axilla: No adenopathy of concern Assessment and Plan Assessment: Impression: 1. Stage IA right breast cancer status post lumpectomy and sentinel node biopsy 2. Completed radiation therapy 3. Presently on Arimidex 4. Asymmetry of the nipple areolar complex related to cancer surgery of the right breast 5. Right breast mammogram BIRADS 2 done on 3220 Plan: 1. Left breast mastopexy 2. Continue her MiraLAX 3. Continue to follow with medical oncology 4. Solid-appearing 6 months 5. Bilateral mammogram in 4 months, if patient is going to have a mastopexy on the left redo mammogram prior to the mastopexy CC: DR. Randall Garces encounter 20 minutes time spent in reviewing medical records, examination, and counselling.
== END ==
LOC: WWCWWP 14:16
PROVIDERS: ATTEND Surgery
DX: R92.8 Other abnormal and inconclusive findings on diagnostic imaging of breast (principal); Z85.3 Personal history of malignant neoplasm of breast; Z92.3 Personal history of irradiation

== ENCOUNTER → 2021-03-06 | Outpatient (CLI) | payer BC ==
--- NOTE | 2021-03-06 12:49 | BD ---
EXAMINATION TYPE: Axial Bone Density DATE OF EXAM: 03/06/2021 COMPARISON: NONE CLINICAL HISTORY: Height: 5 FT 6 IN Weight: 130 FRAX RISK QUESTIONS: Alcohol (3 or more units per day): NO Family History (Parent hip fracture): NO Glucocorticoids (More than 3mos): NO (Ex: prednisone, prednisolone, methylprednisolone, dexamethasone, and hydrocortisone). History of Fracture in Adulthood: NO Secondary Osteoporosis: 1. Type 1 Diabetes: NO 2. Hyperthyroidism: NO 3. Menopause before 45: NO 4. Malnutrition: NO 5. Chronic liver disease: NO Rheumatoid Arthritis: NO Current Tobacco Use: NO RISK FACTORS HISTORY OF: Surgery to Spine/Hip(right/left)/Wrist (right/left): NO Family History of Osteoporosis: NO Active: YES Diet low in dairy products/other sources of calcium: NO Postmenopausal woman: AGE 50-55 Take estrogen and/or progesterone medications: NO Lost more than 2 inches in height since high school: NO MEDICATIONS: Additional Medications: ESTROGEN CARMEN Additional History: BREAST CANCER LUMPECTOMY RADIATION ESTROGEN CARMEN EXAM MEASUREMENTS: Bone mineral densitometry was performed using the [employer] System. Bone mineral density as measured about the Lumbar spine is: ----- L1-L4(G/cm2): 0.981 T Score Values are as follows: ----- L2: -2.1 ----- L3: -1.4 ----- L4: -1.5 ----- L1-L4: -1.7 Bone mineral density has: DECREASED -4.5 % since study of: 2018 Bone mineral density about the R hip (g/cm2): 0.827 Bone mineral density about the L hip (g/cm2): 0.877 T Score values are as follows: -----R Neck: -1.5 -----L Neck: -1.2 -----R Total: -1.5 -----L Total: -1.1 Bone mineral density has: DECREASED -6.9 % since study of: 2019 IMPRESSION: Osteopenia. NOTE: T-SCORE=SD OF THE YOUNG ADULT MEAN.
== END | disposition home or self-care (01) ==
LOC: RADBDWWP 09:52
PROVIDERS: ATTEND Internal Medicine Hematology & Oncology
DX: M85.80 Other specified disorders of bone density and structure, unspecified site (principal)
CPT/HCPCS: 77080

== ENCOUNTER → 2021-03-16 | Outpatient (CLI) | payer BC ==
--- NOTE | 2021-03-16 10:31 | MM ---
Reason for exam: additional evaluation requested from prior study. Last mammogram was performed 4 months ago. History: Patient is postmenopausal, has history of breast cancer at age 53, and had first child at age 32. Malignant US breast localization RT of the right breast, February 02, 2019. Lumpectomy of the right breast, February 02, 2019. Malignant MG stereo VAD BX RT of the right breast, December 29, 2018. Benign left mammotome panel of the left breast, October 11, 2009. Took hormonal contraceptives for 20 years. Taking antineoplastic beginning at age 53. Physical Findings: Nurse did not find any significant physical abnormalities on exam. MG 3D Diag Mammo W/Cad CARROLL Bilateral CC and MLO view(s) were taken. Prior study comparison: November 14, 2020, right breast MG 3d diag mammo w/cad RT. March 29, 2020, bilateral MG 3d diag mammo w/cad CARROLL. The breast tissue is heterogeneously dense. This may lower the sensitivity of mammography. Right lumpectomy and radiation change stable, scarring, upper outer posterior, probably benign. No significant new findings when compared with previous films. These results were verbally communicated with the patient and result sheet given to the patient on 03/16/21. ASSESSMENT: Probably benign, BI-RAD 3 RECOMMENDATION: Follow-up diagnostic mammogram of the right breast in 6 months.
== END | disposition home or self-care (01) ==
LOC: RADMAMWWP 09:07
PROVIDERS: ATTEND Surgery
DX: R92.2 Inconclusive mammogram (principal); Z78.0 Asymptomatic menopausal state; Z85.3 Personal history of malignant neoplasm of breast
CPT/HCPCS: 77062; 77066

== ENCOUNTER → 2021-03-23 | Outpatient (CLI) | payer BC ==
[2021-03-23 14:27] VITALS: BP 121/77; PULSE 66; RESP 18; TEMP 98.2
--- NOTE | 2021-03-23 14:44 | P.PN ---
Subjective Progress Note Date: 03/23/21 Principal diagnosis: right breast stage IA breast cancer stage IA right breast cancer Zoey is a 55 year old white female status post right breast lumpectomy and SNB on 02-02-19. She completed adjuvant radiation therapy in March 2019. She is on arimodex. She did not have any chemotherapy. She is not complaining of any new lumps masses or nodules in her breast. She is not complaining of any nipple discharge or skin changes. She does have asymmetry of the nipple areolar complex related to the prior lumpectomy of the right breast. She has decided against any symmetry procedure. Bilateral mammogram 7221 BIRADS 3 repeat right breast mammogram in 6 months[place] [id number] Owens reviewed Family history: Father: Prostate cancer Surgical history: Right breast lumpectomy and sentinel node biopsy Medical history: Negative Social history: Nicotine: Negative Alcohol: Occasional Drugs: Negative Review of systems: HEENT: Negative Lungs: Negative Heart: Negative GI: Negative : Negative Musculoskeletal: Negative Neurologic: Negative Psychiatric: Negative ALLERGIES: As per HPI Objective - Vital Signs Vital signs: Vital Signs Temp 98.2 F 03/23/21 14:25 Pulse 66 03/23/21 14:25 Resp 18 03/23/21 14:25 BP 121/77 03/23/21 14:25 Pulse Ox 100 03/23/21 14:25 Intake & Output 03/22/21 03/23/21 03/23/21 18:59 06:59 18:59 Weight 57.153 kg - Exam BMI 20.3 - Constitutional General appearance: Present: average body habitus - EENT Eyes: Present: EOMI ENT: Present: hearing grossly normal - Neck Neck: Present: normal ROM - Respiratory Respiratory: bilateral: CTA - Cardiovascular Rhythm: regular Heart sounds: normal: S1, S2 - Integumentary Integumentary: Present: normal turgor - Musculoskeletal Musculoskeletal: Present: gait normal - Psychiatric Psychiatric: Present: A&O x's 3, appropriate affect, intact judgment & insight - Additional findings Additional findings: Breast Exam: BRA: 36B inspection: Right nipple areolar complex slightly higher than left incision well-healed Palpation: Right breast: Multiple positional exam fibrocystic changes no dominant masses or nodules of concern Right axilla: No adenopathy of concern Left breast: Multi-positional exam no dominant masses or nodules of concern Left axilla: No adenopathy of concern Assessment and Plan Assessment: Impression: 1. Patient status post right breast lumpectomy and radiation therapy for stage IA rest cancer no evidence of recurrence 2. Bilateral mammograms 7221 by rates 3 repeat right breast mammogram in 6 months 3. continue arimodex Plan: 1. Repeat right breast mammogram in 6 months 2. Follow-up examination at that time 3. Continue on her limited access CC: Dr. Garces
== END ==
LOC: WWCWWP 14:10
PROVIDERS: ATTEND Surgery
DX: Z08 Encounter for follow-up examination after completed treatment for malignant neoplasm (principal); Z85.3 Personal history of malignant neoplasm of breast; Z98.890 Other specified postprocedural states; Z92.3 Personal history of irradiation; Z79.811 Long term (current) use of aromatase inhibitors

== ENCOUNTER → 2022-03-20 | Outpatient (CLI) | payer BC ==
--- NOTE | 2022-03-20 13:27 | MM ---
Reason for Exam: Follow-up at short interval from prior study. Last screening mammogram was performed 12 month(s) ago. Patient History: Menarche at age 9. First Full-Term at age 32. Late child-bearing (after 30). Postmenopausal. Breast cancer, age 53. Previous chest radiation therapy. Patient used Hormonal Contraceptives for 20 years. 02/02/2019, Lumpectomy on the Right side. 02/02/2019, Malignant Core Biopsy on the right side. 12/29/2018, Malignant Core Biopsy on the right side. 10/11/2009, Benign Core Biopsy on the left side. Tissue Density: The breast tissue is heterogeneously dense. This may lower the sensitivity of mammography. Findings: Analyzed By CAD. Scattered benign-appearing round calcifications in the bilateral breasts are redemonstrated. In the right breast again seen. Biopsy clip left breast redemonstrated. No suspicious new mass or worrisome clustered microcalcification in either breast. Overall Assessment: Benign, BI-RAD 2 Management: Diagnostic Mammogram of both breasts in 1 year. A clinical breast exam by your physician is recommended on an annual basis and results should be correlated with mammographic findings. This exam should not preclude additional follow-up of suspicious palpable abnormalities. Results were given to the patient verbally at the time of exam. Electronically signed and approved by: Leonard Christianson M.D.
== END | disposition home or self-care (01) ==
LOC: RADMAMWWP 12:45
PROVIDERS: ATTEND Radiology Radiation Oncology
DX: R92.1 Mammographic calcification found on diagnostic imaging of breast (principal); Z78.0 Asymptomatic menopausal state; Z85.3 Personal history of malignant neoplasm of breast
CPT/HCPCS: 77062; 77066

== ENCOUNTER 2023-03-08 16:06 | Emergency (ER) | payer BC ==
[2023-03-08 16:17] VITALS: TEMP 98.2
[2023-03-08] MEDS ORDERED: ONDANSETRON 4 MG/2 ML VIAL IVP STA (16:36)
[2023-03-08] MEDS ORDERED: SODIUM CHLORIDE 0.9% 1,000 ML IV STA (16:36)
--- NOTE | 2023-03-08 16:40 | ED ---
Nausea/Vomiting/Diarrhea HPI - General Chief complaint: Nausea/Vomiting/Diarrhea Stated complaint: N/V/D Time Seen by Provider: 03/08/23 16:27 Source: patient, family Mode of arrival: ambulatory Limitations: no limitations - History of Present Illness Initial comments: 58-year-old female presenting with chief complaint of nausea, vomiting, diarrhea ongoing for the last 4 days. Patient denies any localized abdominal pain. She states that her was having similar symptoms and was prescribed Cipro by his PCP. When she developed the same symptoms she started taking Cipro, after 4 doses she began vomiting and breaking out in a rash. Antibitotic changed to azithromycin. She admits to some left-sided flank pain. No dysuria or hematuria. No hematochezia, melena, fever, chills, chest pain, difficulty breathing. - Related Data Home Medications Medication Instructions Recorded Confirmed Calcium Carbonate [Calcium] 600 mg PO DAILY 12/21/18 03/23/21 Cholecalciferol (Vitamin D3) 2,000 unit PO DAILY 12/21/18 03/23/21 [Vitamin D3] Vitamin B Complex 1 each PO DAILY 12/21/18 03/23/21 Anastrozole [Arimidex] 1 mg PO DAILY 06/17/19 03/23/21 Ibuprofen/Diphenhydramine Cit 1 each PO HS 06/17/19 03/23/21 [Motrin Pm Caplet] Previous Rx's Medication Instructions Recorded Ondansetron Odt [Zofran Odt] 4 mg PO Q8HR PRN #20 tab 03/08/23 Allergies Allergy/AdvReac Type Severity Reaction Status Date / Time Sulfa (Sulfonamide Allergy Rash/Hives Verified 03/23/21 14:21 Antibiotics) Review of Systems ROS Statement: Those systems with pertinent positive or pertinent negative responses have been documented in the HPI. ROS Other: All systems not noted in ROS Statement are negative. Past Medical History Past Medical History: Cancer, Osteoarthritis (OA) Additional Past Medical History / Comment(s): breast cancer 2019 History of Any Multi-Drug Resistant Organisms: None Reported Past Surgical History: Breast Surgery, Orthopedic Surgery, Tonsillectomy Additional Past Surgical History / Comment(s): LEFT BREAST BIOSPY APPROX 2008, Lumpectomy and radiation in 2019. Right knee scope 2011 Past Anesthesia/Blood Transfusion Reactions: No Reported Reaction Past Psychological History: Anxiety Smoking Status: Never smoker Past Alcohol Use History: Occasional Past Drug Use History: None Reported - Past Family History Sister(s) Family Medical History: Diabetes Mellitus Additional Family Medical History / Comment(s): PAIN MANAGEMENT, Brain Bleeds. Brother(s) Family Medical History: Hyperlipidemia Father Family Medical History: Cancer, Hypertension Additional Family Medical History / Comment(s): Prostate cancer. General Exam Limitations: no limitations General appearance: alert, in no apparent distress Head exam: Present: atraumatic, normocephalic, normal inspection Eye exam: Present: normal appearance, EOMI. Absent: scleral icterus, periorbital swelling Neck exam: Present: normal inspection, full ROM Respiratory exam: Present: normal lung sounds bilaterally. Absent: respiratory distress, wheezes, rales, rhonchi, stridor Cardiovascular Exam: Present: regular rate, normal rhythm, normal heart sounds. Absent: systolic murmur, diastolic murmur, rubs, gallop, clicks GI/Abdominal exam: Present: soft. Absent: distended, tenderness, guarding, rebound, rigid Neurological exam: Present: alert, oriented X3, CN II-XII intact Psychiatric exam: Present: normal affect, normal mood Skin exam: Present: warm, dry, intact, normal color. Absent: rash Course Vital Signs 03/08/23 03/08/23 03/08/23 16:09 17:15 19:29 Temperature 98.2 F Pulse Rate 84 69 75 Respiratory 20 15 15 Rate Blood Pressure 117/78 123/72 115/65 O2 Sat by Pulse 99 100 100 Oximetry Medical Decision Making - Medical Decision Making 58-year-old female presenting with chief complaint of vomiting and diarrhea for several days. Currently on azithromycin prescribed by her PCP. Physical examination is unremarkable. Lab work is essentially unremarkable. Urine shows signs of dehydration. C. diff is negative. Patient is treated with Zofran and fluids, reports improvement in her symptoms. She'll be discharged home on Zofra n and instructed to discontinue her antibiotics. Follow-up with PCP. Report back to ER with any new or worsening symptoms. Discussed return parameters and answered all questions. Patient conveyed verbal understanding and agreed to the plan. I discussed this case in detail with my attending Dr. Dash Was pt. sent in by a medical professional or institution (, PA, MECHANICAL MANAGER, urgent care, hospital, or snf...) When possible be specific @ -No Did you speak to anyone other than the patient for history (EMS, parent, family, police, friend...)? What history was obtained from this source @ -No Did you review nursing and triage notes (agree or disagree)? Why? @ -I reviewed and agree with nursing and triage notes Were old charts reviewed (outside hosp., previous admission, EMS record, old EKG, old radiological studies, urgent care reports/EKG's, snf records)? Report findings @ -No old charts were reviewed Differential Diagnosis (chest pain, altered mental status, abdominal pain women, abdominal pain men, vaginal bleeding, weakness, fever, dyspnea, syncope, headache, dizziness, GI bleed, back pain, seizure, CVA, palpatations, mental health, musculoskeletal)? @ -Differential includes gastroenteritis, C. diff, colitis, this is not an all inclusive list EKG interpreted by me (3pts min.). @ -As above X-rays interpreted by me (1pt min.). @ -None done CT interpreted by me (1pt min.). @ -None done U/S interpreted by me (1pt. min.). @ -None done What testing was considered but not performed or refused? (CT, X-rays, U/S, labs)? Why? @ -None What meds were considered but not given or refused? Why? @ -None Did you discuss the management of the patient with other professionals (professionals i.e. , PA, MECHANICAL MANAGER, lab, RT, psych nurse, long term care social worker, well digger, teacher, legal compliance officer, field nurse case manager)? Give summary @ -No Was smoking cessation discussed for >3mins.? @ -No Was critical care preformed (if so, how long)? @ -No Were there social determinants of health that impacted care today? How? (Homelessness, low income, unemployed, alcoholism, drug addiction, transportation, low edu. Level, literacy, decrease access to med. care, half-way, rehab)? @ -No Was there de-escalation of care discussed even if they declined (Discuss DNR or withdrawal of care, Hospice)? DNR status @ -No What co-morbidities impacted this encounter? (DM, HTN, Smoking, COPD, CAD, Cancer, CVA, ARF, Chemo, Hep., AIDS, mental health diagnosis, sleep apnea, morbid obesity)? @ -None Was patient admitted / discharged? Hospital course, mention meds given and route, prescriptions, significant lab abnormalities, going to OR and other pertinent info. @ -Discharged, see above for course Undiagnosed new problem with uncertain prognosis? @ -No Drug Therapy requiring intensive monitoring for toxicity (Heparin, Nitro, Insulin, Cardizem)? @ -No Were any procedures done? @ -No Diagnosis/symptom? @ -Gastroenteritis Acute, or Chronic, or Acute on Chronic? @ -acute Uncomplicated (without systemic symptoms) or Complicated (systemic symptoms)? @ -Uncomplicated Side effects of treatment? @ -No Exacerbation, Progression, or Severe Exacerbation? @ -No Poses a threat to life or bodily function? How? (Chest pain, [place], [place], pneumonia, PE, COPD, DKA, ARF, appy, cholecystitis, CVA, Diverticulitis, Homicidal, Suicidal, threat to staff... and all critical care pts) @ -Low likelihood - Lab Data Result diagrams: 03/08/23 17:14 03/08/23 17:14 Lab Results 03/08/23 03/08/23 03/08/23 Range/Units 16:10 17:14 17:14 WBC 4.3 (3.8-10.6) k/uL RBC 4.51 (3.80-5.40) m/uL Hgb 13.9 (11.4-16.0) gm/dL Hct 41.7 (34.0-46.0) % MCV 92.6 (80.0-100.0) fL MCH 30.9 (25.0-35.0) pg MCHC 33.4 (31.0-37.0) g/dL RDW 12.6 (11.5-15.5) % Plt Count 162 (150-450) k/uL MPV 8.7 Neutrophils % 78 % Lymphocytes % 8 % Monocytes % 7 % Eosinophils % 4 % Basophils % 0 % Neutrophils # 3.4 (1.3-7.7) k/uL Lymphocytes # 0.3 L (1.0-4.8) k/uL Monocytes # 0.3 (0-1.0) k/uL Eosinophils # 0.2 (0-0.7) k/uL Basophils # 0.0 (0-0.2) k/uL Sodium 136 L (137-145) mmol/L Potassium 3.7 (3.5-5.1) mmol/L Chloride 101 (98-107) mmol/L Carbon Dioxide 25 (22-30) mmol/L Anion Gap 10 mmol/L BUN 15 (7-17) mg/dL Creatinine 0.68 (0.52-1.04) mg/dL Est GFR (CKD-EPI)AfAm >90 (>60 ml/min/1.73 sqM) Est GFR (CKD-EPI)NonAf >90 (>60 ml/min/1.73 sqM) Glucose 92 (74-99) mg/dL Calcium 8.7 (8.4-10.2) mg/dL Total Bilirubin 0.7 (0.2-1.3) mg/dL AST 36 (14-36) U/L ALT 19 (4-34) U/L Alkaline Phosphatase 49 (38-126) U/L Total Protein 6.9 (6.3-8.2) g/dL Albumin 4.1 (3.5-5.0) g/dL Amylase 77 (30-110) U/L Lipase 119 (23-300) U/L Urine Color Yellow Urine Appearance Cloudy H (Clear) Urine pH 5.5 (5.0-8.0) Ur Specific Devine 1.025 (1.001-1.035) Urine Protein 1+ H (Negative) Urine Glucose (UA) Negative (Negative) Urine Ketones 4+ H (Negative) Urine Blood Moderate H (Negative) Urine Nitrite Negative (Negative) Urine Bilirubin 1+ H (Negative) Urine Urobilinogen <2.0 (<2.0) mg/dL Ur Leukocyte Esterase Negative (Negative) Urine RBC 3 (0-5) /hpf Urine WBC 1 (0-5) /hpf Ur Squamous Epith Cells <1 (0-4) /hpf Amorphous Sediment Rare H (None) /hpf Urine Mucus Moderate H (None) /hpf C. difficile (EIA) Intrp (Negative) 03/08/23 Range/Units 17:28 WBC (3.8-10.6) k/uL RBC (3.80-5.40) m/uL Hgb (11.4-16.0) gm/dL Hct (34.0-46.0) % MCV (80.0-100.0) fL MCH (25.0-35.0) pg MCHC (31.0-37.0) g/dL RDW (11.5-15.5) % Plt Count (150-450) k/uL MPV Neutrophils % % Lymphocytes % % Monocytes % % Eosinophils % % Basophils % % Neutrophils # (1.3-7.7) k/uL Lymphocytes # (1.0-4.8) k/uL Monocytes # (0-1.0) k/uL Eosinophils # (0-0.7) k/uL Basophils # (0-0.2) k/uL Sodium (137-145) mmol/L Potassium (3.5-5.1) mmol/L Chloride (98-107) mmol/L Carbon Dioxide (22-30) mmol/L Anion Gap mmol/L BUN (7-17) mg/dL Creatinine (0.52-1.04) mg/dL Est GFR (CKD-EPI)AfAm (>60 ml/min/1.73 sqM) Est GFR (CKD-EPI)NonAf (>60 ml/min/1.73 sqM) Glucose (74-99) mg/dL Calcium (8.4-10.2) mg/dL Total Bilirubin (0.2-1.3) mg/dL AST (14-36) U/L ALT (4-34) U/L Alkaline Phosphatase (38-126) U/L Total Protein (6.3-8.2) g/dL Albumin (3.5-5.0) g/dL Amylase (30-110) U/L Lipase (23-300) U/L Urine Color Urine Appearance (Clear) Urine pH (5.0-8.0) Ur Specific Devine (1.001-1.035) Urine Protein (Negative) Urine Glucose (UA) (Negative) Urine Ketones (Negative) Urine Blood (Negative) Urine Nitrite (Negative) Urine Bilirubin (Negative) Urine Urobilinogen (<2.0) mg/dL Ur Leukocyte Esterase (Negative) Urine RBC (0-5) /hpf Urine WBC (0-5) /hpf Ur Squamous Epith Cells (0-4) /hpf Amorphous Sediment (None) /hpf Urine Mucus (None) /hpf C. difficile (EIA) Intrp Negative (Negative) Disposition Clinical Impression: Nausea & vomiting, Diarrhea Disposition: HOME SELF-CARE Condition: Good Instructions (If sedation given, give patient instructions): Acute Nausea and Vomiting (ED), Acute Diarrhea (ED) Additional Instructions: Follow-up with PCP. Report back to ER with any new or worsening symptoms. Take medication as prescribed. Prescriptions: Ondansetron Odt [Zofran Odt] 4 mg PO Q8HR PRN #20 tab PRN Reason: Nausea Is patient prescribed a controlled substance at d/c from ED?: No Referrals: Randall Garces MD [Primary Care Provider] - 1-2 days Time of Disposition: 18:59
[2023-03-08 16:41] LABS: Amorphous Sediment,Urine Rare /hpf; Appearance,Urine Cloudy (Clear); Bilirubin,Urine 1+ (Negative); Blood,Urine Moderate (Negative); Color,Urine Yellow; Glucose,Urine (UA) Negative (Negative); Leukocyte Esterase,Urine Negative (Negative); Mucus,Urine Moderate /hpf; Nitrite,Urine Negative (Negative); PH, Urine 5.5 (5.0-8.0); Protein,Urine 1+ (Negative); RBC,Urine 3 /hpf (0-5); Specific Gravity,Urine 1.025 (1.001-1.035); Squamous Epithelial Cell,Urine <1 /hpf (0-4); Urobilinogen,Urine <2.0 mg/dL (<2.0); WBC,Urine 1 /hpf (0-5)
[2023-03-08 16:43] LABS: Ketones,Urine 4+ (Negative)
[2023-03-08 17:18] VITALS: RESP 15
[2023-03-08 17:26] LABS: Basophils % (A) 0 %; Eosinophils # (A) 0.2 k/uL (0-0.7); Eosinophils % (A) 4 %; HCT 41.7 % (34.0-46.0); HGB 13.9 gm/dL (11.4-16.0); Lymphocytes # (A) 0.3 k/uL (1.0-4.8); Lymphocytes % (A) 8 %; MCH 30.9 pg (25.0-35.0); MCHC 33.4 g/dL (31.0-37.0); MCV 92.6 fL (80.0-100.0); Mean Platelet Volume 8.7; Monocytes # (A) 0.3 k/uL (0-1.0); Monocytes % (A) 7 %; Neutrophils # (A) 3.4 k/uL (1.3-7.7); Neutrophils % (A) 78 %; Platelet Count 162 k/uL (150-450); RBC 4.51 m/uL (3.80-5.40); RDW 12.6 % (11.5-15.5); WBC 4.3 k/uL (3.8-10.6)
[2023-03-08 17:40] LABS: ALT 19 U/L (4-34); AST 36 U/L (14-36); African American GFR (CKD) >90 (>60 ml/min/1.73 sqM); Albumin 4.1 g/dL (3.5-5.0); Alkaline Phosphatase 49 U/L (38-126); Amylase 77 U/L (30-110); Anion Gap 10 mmol/L; Blood Urea Nitrogen 15 mg/dL (7-17); Calcium 8.7 mg/dL (8.4-10.2); Carbon Dioxide 25 mmol/L (22-30); Chloride 101 mmol/L (98-107); Glucose 92 mg/dL (74-99); Lipase 119 U/L (23-300); Non-African American GFR(CKD) >90 (>60 ml/min/1.73 sqM); Potassium 3.7 mmol/L (3.5-5.1); Sodium 136 mmol/L (137-145); Total Bilirubin 0.7 mg/dL (0.2-1.3); Total Protein 6.9 g/dL (6.3-8.2)
[2023-03-08 19:31] VITALS: BP 115/65; PULSE 75
== END 2023-03-08 19:29 | disposition home or self-care (01) ==
LOC: EC 16:06
DX: K52.9 Noninfective gastroenteritis and colitis, unspecified (principal); Z88.2 Allergy status to sulfonamides
CPT/HCPCS: 36415; 80053; 82150; 83690; 85025; 81001; 87324; 99284; 96374; 96361; J2405

== ENCOUNTER 2023-03-11 14:16 | Emergency (ER) | payer BC ==
[2023-03-11 14:34] VITALS: TEMP 98.6
[2023-03-11] MEDS ORDERED: SODIUM CHLORIDE 0.9% 1,000 ML IV STA (16:17)
--- NOTE | 2023-03-11 16:21 | ED ---
Nausea/Vomiting/Diarrhea HPI - General Chief complaint: Nausea/Vomiting/Diarrhea Stated complaint: nausea, diarrhea Time Seen by Provider: 03/11/23 16:17 Source: patient Mode of arrival: ambulatory Limitations: no limitations - History of Present Illness Initial comments: There is a 4-year-old female presents the ER today for reevaluation of persistent diarrhea with some abdominal upset. Patient reports that she developed diarrhea on , she was prescribed Cipro but reports she had a reaction to this was changed to azithromycin. Despite taking this medications she has experienced persistent mucousy diarrhea. Patient reports she tried taking Imodium with no improvement in her symptoms. Patient's was prescribed Cipro he was able to complete it and had some improvement in the diarrhea but reports today the diarrhea seems to be coming back. They do work of livestock but maintain good hygiene and don't believe this is due to exp osure. Patient was tested for C. diff and was negative. She's had no fevers. Only crampy abdominal pain. No significant GI history. - Related Data Home Medications Medication Instructions Recorded Confirmed Calcium Carbonate [Calcium] 600 mg PO DAILY 12/21/18 03/23/21 Cholecalciferol (Vitamin D3) 2,000 unit PO DAILY 12/21/18 03/23/21 [Vitamin D3] Vitamin B Complex 1 each PO DAILY 12/21/18 03/23/21 Anastrozole [Arimidex] 1 mg PO DAILY 06/17/19 03/23/21 Ibuprofen/Diphenhydramine Cit 1 each PO HS 06/17/19 03/23/21 [Motrin Pm Caplet] Previous Rx's Medication Instructions Recorded Ondansetron Odt [Zofran Odt] 4 mg PO Q8HR PRN #20 tab 03/08/23 Amoxicillin 500 mg PO BID 10 Days #20 capsule 03/11/23 Allergies Allergy/AdvReac Type Severity Reaction Status Date / Time Sulfa (Sulfonamide Allergy Rash/Hives Verified 03/23/21 14:21 Antibiotics) Review of Systems ROS Statement: Those systems with pertinent positive or pertinent negative responses have been documented in the HPI. ROS Other: All systems not noted in ROS Statement are negative. Past Medical History Past Medical History: Cancer, Osteoarthritis (OA) Additional Past Medical History / Comment(s): breast cancer 2019 History of Any Multi-Drug Resistant Organisms: None Reported Past Surgical History: Breast Surgery, Orthopedic Surgery, Tonsillectomy Additional Past Surgical History / Comment(s): LEFT BREAST BIOSPY APPROX 2009, Lumpectomy and radiation in 2019. Right knee scope 2011 Past Anesthesia/Blood Transfusion Reactions: No Reported Reaction Past Psychological History: Anxiety Smoking Status: Never smoker Past Alcohol Use History: Occasional Past Drug Use History: None Reported - Past Family History Sister(s) Family Medical History: Diabetes Mellitus Additional Family Medical History / Comment(s): PAIN MANAGEMENT, Brain Bleeds. Brother(s) Family Medical History: Hyperlipidemia Father Family Medical History: Cancer, Hypertension Additional Family Medical History / Comment(s): Prostate cancer. General Exam - General Exam Comments Initial Comments: Physical Exam GENERAL: Patient is well-developed and well-nourished. Patient is nontoxic and well-hydrated and is in no distress. HENT: Normocephalic, Atraumatic. EYES: PERRL, EOMI PULMONARY: Unlabored respirations. CARDIOVASCULAR: RRR Warm and well perfused extremities ABDOMEN: Non-distended SKIN: No rashes or bruising : Deferred NEUROLOGIC: Alert and oriented Normal speech Normal gait MUSCULOSKELETAL: Moving all extremities with no apparent injury PSYCHIATRIC: No SI/HI Limitations: no limitations Course Vital Signs 03/11/23 03/11/23 14:31 19:22 Temperature 98.6 F Pulse Rate 92 72 Respiratory 16 18 Rate Blood Pressure 113/72 104/51 O2 Sat by Pulse 98 100 Oximetry Medical Decision Making - Medical Decision Making Was pt. sent in by a medical professional or institution (, PA, JAIL GUARD, urgent care, hospital, or [facility]...) When possible be specific @ -, physician Did you speak to anyone other than the patient for history (EMS, parent, family, police, friend...)? What history was obtained from this source @ -Patient care was discussed with her primary care physician Did you review nursing and triage notes (agree or disagree)? Why? @ -Reviewed and agree with triage notes Were old charts reviewed (outside hosp., previous admission, EMS record, old EKG, old radiological studies, urgent care reports/EKG's, [facility] records)? Report findings @ -Reviewed patient's past medical history and chart from earlier this week as well as results Differential Diagnosis (chest pain, altered mental status, abdominal pain women, abdominal pain men, vaginal bleeding, weakness, fever, dyspnea, syncope, headache, dizziness, GI bleed, back pain, seizure, CVA, palpatations, mental health, musculoskeletal)? @ -Differential diagnosis for diarrhea is infectious, inflammatory EKG interpreted by me (3pts min.). @ -As above X-rays interpreted by me (1pt min.). @ -None done CT interpreted by me (1pt min.). @ -None done U/S interpreted by me (1pt. min.). @ -None done What testing was considered but not performed or refused? (CT, X-rays, U/S, labs)? Why? @ -C. diff study was considered however was completed earlier in the week What meds were considered but not given or refused? Why? @ -Did offer prescription for Lomotil however had no improvement with Imodium and does not want metastases to slow stooling Did you discuss the management of the patient with other professionals (professionals i.e. , PA, JAIL GUARD, lab, RT, psych nurse, manager social services, grades 1 thru 5 teacher, teacher, county records management officer, director of casework services)? Give summary @ -She care was discussed with her primary care physician Was smoking cessation discussed for >3mins.? @ -No Was critical care preformed (if so, how long)? @ -No Were there social determinants of health that impacted care today? How? (Homelessness, low income, unemployed, alcoholism, drug addiction, transportation, low edu. Level, literacy, decrease access to med. care, snf, rehab)? @ -No Was there de-escalation of care discussed even if they declined (Discuss DNR or withdrawal of care, Hospice)? DNR status @ -No What co-morbidities impacted this encounter? (DM, HTN, Smoking, COPD, CAD, Cancer, CVA, ARF, Chemo, Hep., AIDS, mental health diagnosis, sleep apnea, morbid obesity)? @ -None Was patient admitted / discharged? Hospital course, mention meds given and route, prescriptions, significant lab abnormalities, going to OR and other pertinent info. @ -Discharged Undiagnosed new problem with uncertain prognosis? @ -Diarrhea Drug Therapy requiring intensive monitoring for toxicity (Heparin, Nitro, Insulin, Cardizem)? @ -No Were any procedures done? @ -No Diagnosis/symptom? @ -Diarrhea Acute, or Chronic, or Acute on Chronic? @ -Acute Uncomplicated (without systemic symptoms) or Complicated (systemic symptoms)? @ -Uncomplicated Side effects of treatment? @ -No Exacerbation, Progression, or Severe Exacerbation? @ -No Poses a threat to life or bodily function? How? (Chest pain, USA, [place], pneumonia, PE, COPD, DKA, ARF, appy, cholecystitis, CVA, Diverticulitis, Homicidal, Suicidal, threat to staff... and all critical care pts) @ -No Concerning exposure to livestock we will treat for possible salmonella with amoxicillin. I did advise patient that antibiotics can worsen diarrhea specialists not infectious in nature however given her risk factors and persistence of symptoms patient was eager for possible treatment. - Lab Data Result diagrams: 03/11/23 17:17 03/11/23 17:17 Lab Results 03/11/23 03/11/23 03/11/23 Range/Units 17:17 17:17 17:17 WBC 4.2 (3.8-10.6) k/uL RBC 4.82 (3.80-5.40) m/uL Hgb 14.6 (11.4-16.0) gm/dL Hct 44.0 (34.0-46.0) % MCV 91.3 (80.0-100.0) fL MCH 30.2 (25.0-35.0) pg MCHC 33.1 (31.0-37.0) g/dL RDW 12.9 (11.5-15.5) % Plt Count 187 (150-450) k/uL MPV 8.8 Neutrophils % (Manual) 65 % Band Neuts % (Manual) 8 % Lymphocytes % (Manual) 15 % Monocytes % (Manual) 7 % Eosinophils % (Manual) 5 % Neutrophils # (Manual) 3.00 (1.3-7.7) k/uL Lymphocytes # (Manual) 0.63 L (1.0-4.8) k/uL Monocytes # (Manual) 0.29 (0-1.0) k/uL Eosinophils # (Manual) 0.21 (0-0.7) k/uL Nucleated RBCs 0 (0-0) /100 WBC Manual Slide Review Performed Toxic Vacuolation Present RBC Morphology Normal Sodium 134 L (137-145) mmol/L Potassium 3.7 (3.5-5.1) mmol/L Chloride 103 (98-107) mmol/L Carbon Dioxide 21 L (22-30) mmol/L Anion Gap 10 mmol/L BUN 6 L (7-17) mg/dL Creatinine 0.59 (0.52-1.04) mg/dL Est GFR (CKD-EPI)AfAm >90 (>60 ml/min/1.73 sqM) Est GFR (CKD-EPI)NonAf >90 (>60 ml/min/1.73 sqM) Glucose 96 (74-99) mg/dL Calcium 8.2 L (8.4-10.2) mg/dL Magnesium 2.0 (1.6-2.3) mg/dL Total Bilirubin 0.7 (0.2-1.3) mg/dL AST 32 (14-36) U/L ALT 20 (4-34) U/L Alkaline Phosphatase 40 (38-126) U/L Total Protein 6.1 L (6.3-8.2) g/dL Albumin 3.6 (3.5-5.0) g/dL Urine Color Yellow Urine Appearance Clear (Clear) Urine pH 6.0 (5.0-8.0) Ur Specific Natalia 1.012 (1.001-1.035) Urine Protein Trace H (Negative) Urine Glucose (UA) Negative (Negative) Urine Ketones 1+ H (Negative) Urine Blood Trace H (Negative) Urine Nitrite Negative (Negative) Urine Bilirubin Negative (Negative) Urine Urobilinogen <2.0 (<2.0) mg/dL Ur Leukocyte Esterase Negative (Negative) Urine RBC 2 (0-5) /hpf Urine WBC 1 (0-5) /hpf Ur Squamous Epith Cells <1 (0-4) /hpf Hyaline Casts 1 (0-2) /lpf Urine Mucus Rare H (None) /hpf Disposition Clinical Impression: Diarrhea Disposition: HOME SELF-CARE Condition: Stable Instructions (If sedation given, give patient instructions): Acute Diarrhea (ED) Prescriptions: Amoxicillin 500 mg PO BID 10 Days #20 capsule Is patient prescribed a controlled substance at d/c from ED?: No Referrals: Randall Garces MD [Primary Care Provider] - 1-2 days
[2023-03-11 17:37] LABS: HGB 14.6 gm/dL (11.4-16.0); MCH 30.2 pg (25.0-35.0); MCHC 33.1 g/dL (31.0-37.0); MCV 91.3 fL (80.0-100.0); Mean Platelet Volume 8.8; Platelet Count 187 k/uL (150-450); RBC 4.82 m/uL (3.80-5.40); RDW 12.9 % (11.5-15.5); WBC 4.2 k/uL (3.8-10.6)
[2023-03-11 17:48] LABS: ALT 20 U/L (4-34); AST 32 U/L (14-36); African American GFR (CKD) >90 (>60 ml/min/1.73 sqM); Albumin 3.6 g/dL (3.5-5.0); Alkaline Phosphatase 40 U/L (38-126); Anion Gap 10 mmol/L; Blood Urea Nitrogen 6 mg/dL (7-17); Calcium 8.2 mg/dL (8.4-10.2); Carbon Dioxide 21 mmol/L (22-30); Chloride 103 mmol/L (98-107); Glucose 96 mg/dL (74-99); Non-African American GFR(CKD) >90 (>60 ml/min/1.73 sqM); Sodium 134 mmol/L (137-145); Total Bilirubin 0.7 mg/dL (0.2-1.3); Total Protein 6.1 g/dL (6.3-8.2)
[2023-03-11 18:08] LABS: Band Neutrophils % 8 %; Eosinophils # (M) 0.21 k/uL (0-0.7); Lymphocytes # (M) 0.63 k/uL (1.0-4.8); Monocytes # (M) 0.29 k/uL (0-1.0); Neutrophils % (M) 65 %; Nucleated Red Blood Cells 0 /100 WBC (0-0); Total Cells Counted 100
[2023-03-11 18:10] LABS: RBC Morphology Normal; Toxic Vacuolation Present
[2023-03-11 18:12] LABS: Potassium 3.7 mmol/L (3.5-5.1)
[2023-03-11 19:19] LABS: Appearance,Urine Clear (Clear); Bilirubin,Urine Negative (Negative); Blood,Urine Trace (Negative); Color,Urine Yellow; Glucose,Urine (UA) Negative (Negative); Hyaline Casts,Urine 1 /lpf (0-2); Ketones,Urine 1+ (Negative); Leukocyte Esterase,Urine Negative (Negative); Mucus,Urine Rare /hpf; Nitrite,Urine Negative (Negative); Protein,Urine Trace (Negative); RBC,Urine 2 /hpf (0-5); Specific Gravity,Urine 1.012 (1.001-1.035); Squamous Epithelial Cell,Urine <1 /hpf (0-4); Urobilinogen,Urine <2.0 mg/dL (<2.0); WBC,Urine 1 /hpf (0-5)
[2023-03-11 19:22] VITALS: RESP 18
[2023-03-11] MEDS ORDERED: SODIUM CHLORIDE 0.9% 1,000 ML IV ONE (20:05)
[2023-03-11] MEDS ORDERED: AMOXICILLIN 500 MG CAP PO STA (20:16)
[2023-03-11 20:40] VITALS: BP 113/54; PULSE 78
== END 2023-03-11 20:39 | disposition home or self-care (01) ==
LOC: EC 14:16
DX: R19.7 Diarrhea, unspecified (principal); M19.90 Unspecified osteoarthritis, unspecified site; F41.9 Anxiety disorder, unspecified; Z79.899 Other long term (current) drug therapy; Z88.2 Allergy status to sulfonamides; Z79.1 Long term (current) use of non-steroidal anti-inflammatories (NSAID)
CPT/HCPCS: 36415; 80053; 81001; 83735; 85025; 87045; 87046; 96360; 96361; 99284

== ENCOUNTER → 2023-03-26 | Outpatient (CLI) | payer BC ==
--- NOTE | 2023-03-27 07:42 | BD ---
EXAMINATION TYPE: Axial Bone Density DATE OF EXAM: 03/26/2023 CLINICAL HISTORY: 58 years old Female. ICD-10 CODE: C50.411 MALIG NEOPLM OF UPPER-OUT Height: 5 ft 5 in Weight: 128 FRAX RISK QUESTIONS: Alcohol (3 or more units per day): no Family History (Parent hip fracture): no Glucocorticoids (More than 3mos): no (Ex: prednisone, prednisolone, methylprednisolone, dexamethasone, and hydrocortisone). History of Fracture in Adulthood: no Secondary Osteoporosis: 1. Type 1 Diabetes: no 2. Hyperthyroidism: no 3. Menopause before 45: no 4. Malnutrition: no 5. Chronic liver disease: no Rheumatoid Arthritis: no Current Tobacco Use: no RISK FACTORS HISTORY OF: Surgery to Spine/Hip(right/left)/Wrist (right/left): no Family History of Osteoporosis: no Active: yes Diet low in dairy products/other sources of calcium: no Postmenopausal woman: yes Take estrogen and/or progesterone medications: no Lost more than 2 inches in height since high school: no Frequent falls: no Poor Health: good Hyperparathyroidism: no Adrenal Insufficiency: no MEDICATIONS: Osteoporosis Medications: yes Which medication: risdronate How Long: one year Additional Medications: risindronate, Additional History: EXAM MEASUREMENTS: Bone mineral densitometry was performed using the Wire System. Bone mineral density as measured about the Lumbar spine is: ----- L1-L4(G/cm2): 0.992 T Score Values are as follows: ----- L1: -2.1 ----- L2: -2.1 ----- L3: -1.5 ----- L4: -1.1 ----- L1-L4: -1.6 Z Score Values are as follows: ----- L1: -0.7 ----- L2: -0.7 ----- L3: 0.0 ----- L4: 0.4 ----- L1-L4: -0.1 Bone mineral density has: increased 1.1 % since study of: 2020 Bone mineral density about the R hip (g/cm2): 0.781 Bone mineral density about the L hip (g/cm2): 0.856 T Score values are as follows: -----R Neck: -1.9 -----L Neck: -1.3 -----R Total: -1.3 -----L Total: -0.9 Z Score values are as follows: -----R Neck: -0.5 -----L Neck: 0.1 -----R Total: -0.2 -----L Total: 0.2 Bone mineral density has: increased 2.8 % since study of: 2020 FRAX%s: The graph provided illustrates a 8.4 % chance for a major osteoporotic fx and a 1.0 % chance for the hips probability for fx in 10 years time. IMPRESSION: Osteopenia (T Score between -2.5 and -1). There is slightly increased risk of fracture and the patient may be considered for treatment. Re-Screen 2-5 years. NOTE: T-SCORE=SD OF THE YOUNG ADULT MEAN.
--- NOTE | 2023-03-27 08:51 | MM ---
Reason for Exam: Screening (asymptomatic). Last screening mammogram was performed 12 month(s) ago. Patient History: Menarche at age 9. First Full-Term at age 32. Late child-bearing (after 30). Postmenopausal. Breast cancer, right, age 53. Previous chest radiation therapy. Patient used Hormonal Contraceptives for 20 years. 02/02/2019, Lumpectomy on the Right side. 02/02/2019, Malignant Core Biopsy on the right side. 12/29/2018, Malignant Core Biopsy on the right side. 10/11/2009, Benign Core Biopsy on the left side. Sister had breast cancer. Prior Study Comparison: 03/16/2021 Bilateral Diagnostic Mammogram, [facility]. 09/18/2021 Right Diagnostic Mammogram, [facility]. 03/20/2022 Bilateral MG 3D diag mammo w/cad [facility], [facility]. Tissue Density: The breast tissue is heterogeneously dense. This may lower the sensitivity of mammography. Findings: Analyzed By CAD. There is no suspicious group of microcalcifications or new suspicious mass in either breast. Overall Assessment: Benign, BI-RAD 2 Management: Screening Mammogram of both breasts in 1 year. . Patient should continue monthly self-breast exams. A clinical breast exam by your physician is recommended on an annual basis. This exam should not preclude additional follow-up of suspicious palpable abnormalities. Note on Yessi scores and lifetime risk: 1. A Yessi score greater than 3% is considered moderate risk. If this is the case, consider specialist referral to assess eligibility for a risk reducing agent. 2. If overall lifetime risk for the development of breast cancer is 20% or higher, the patient may qualify for future screening with alternating mammogram and breast MRI. Electronically signed and approved by: Harshad Becerra M.D. Radiologis
== END | disposition home or self-care (01) ==
LOC: RADMAMWWP 10:11
PROVIDERS: ATTEND Internal Medicine Hematology & Oncology
DX: Z12.31 Encounter for screening mammogram for malignant neoplasm of breast (principal); C50.411 Malignant neoplasm of upper-outer quadrant of right female breast; M85.89 Other specified disorders of bone density and structure, multiple sites; Z78.0 Asymptomatic menopausal state; Z80.3 Family history of malignant neoplasm of breast
CPT/HCPCS: 77063; 77067; 77080

== ENCOUNTER → 2024-04-06 | Outpatient (CLI) | payer BC ==
--- NOTE | 2024-04-08 09:52 | MM ---
Reason for Exam: Screening (asymptomatic). Last screening mammogram was performed 12 month(s) ago. Patient History: Menarche at age 9. First Full-Term at age 32. Late child-bearing (after 30). Postmenopausal. Patient has history of breast feeding. Breast cancer, right, age 53. Previous chest radiation therapy. Patient used Hormonal Contraceptives for 20 years. 02/02/2019, Lumpectomy on the Right side. 02/02/2019, Malignant Core Biopsy on the right side. 12/29/2018, Malignant Core Biopsy on the right side. 10/11/2009, Benign Core Biopsy on the left side. Sister had breast cancer. Prior Study Comparison: 09/18/2021 Right Diagnostic Mammogram, [facility]. 03/20/2022 Bilateral MG 3D diag mammo w/cad [facility], [facility]. 03/26/2023 Bilateral MG 3D screening mammo w/cad, [facility]. Tissue Density: The breasts are heterogeneously dense, which may obscure small masses. Findings: Analyzed By CAD. There is no suspicious group of microcalcifications or new suspicious mass in either breast. Overall Assessment: Benign, BI-RAD 2 Management: Screening Mammogram of both breasts in 1 year. . Patient should continue monthly self-breast exams. A clinical breast exam by your physician is recommended on an annual basis. This exam should not preclude additional follow-up of suspicious palpable abnormalities. Note on Yessi scores and lifetime risk: 1. A Yessi score greater than 3% is considered moderate risk. If this is the case, consider specialist referral to assess eligibility for a risk reducing agent. 2. If overall lifetime risk for the development of breast cancer is 20% or higher, the patient may qualify for future screening with alternating mammogram and breast MRI. Electronically signed and approved by: Harshad Becerra M.D. Radiologis
== END | disposition home or self-care (01) ==
LOC: RADMAMWWP 08:53
PROVIDERS: ATTEND Internal Medicine Hematology & Oncology
DX: Z12.31 Encounter for screening mammogram for malignant neoplasm of breast (principal); C50.411 Malignant neoplasm of upper-outer quadrant of right female breast; R92.333 Mammographic heterogeneous density, bilateral breasts; Z78.0 Asymptomatic menopausal state; Z80.3 Family history of malignant neoplasm of breast
CPT/HCPCS: 77063; 77067